=== PATIENT | male | born 1960 ===

== ENCOUNTER 2021-09-18 12:42 | Inpatient (IN) | payer OTHER ==
[~2021-09-18] VITALS: Ht 185.4 cm; Wt 112.0 kg
[2021-09-18] MEDS ORDERED: dexamethasone 4mg tablet PO ONE (13:05)
[2021-09-18 13:11] LABS: BASOPHILS % (AUTO) 0.1 % (0-1); EOSINOPHILS % (AUTO) 0 % (0-6); HEMATOCRIT 46.1 % (42.0-52.0); HEMOGLOBIN 15.6 g/dl (14.0-17.9); LYMPHOCYTES # (AUTO) 0.5 X10'3 (1.1-4.8); LYMPHOCYTES % (AUTO) 5.7 % (21-51); MEAN CORPUSCULAR HEMOGLOBIN 31.5 PG (27.0-31.0); MEAN CORPUSCULAR HGB CONC 33.9 g/dL (33.0-36.5); MEAN PLATELET VOLUME 9.3 FL (7.4-10.4); MONOCYTES # (AUTO) 0.5 X10'3 (0-0.9); NEUTROPHILS # (AUTO) 8.1 X10'3 (1.8-7.7); NEUTROPHILS % (AUTO) 88.2 % (42-75); PLATELET COUNT 213 X10'3 (140-440); RED BLOOD COUNT 4.96 X10'6 (4.70-6.10); RED CELL DISTRIBUTION WIDTH 14.6 % (11.5-14.5); WHITE BLOOD COUNT 9.1 X10'3 (4.5-11.0)
--- NOTE | 2021-09-18 13:13 | NUR ---
ÁLVARO [phone]
[2021-09-18 13:19] LABS: PARTIAL THROMBOPLASTIN TIME 25 SECONDS (22-32)
[2021-09-18 13:28] LABS: ALANINE AMINOTRANSFERASE 69 U/L (12-78); ALBUMIN 2.4 G/DL (3.4-5.0); ALBUMIN/GLOBULIN RATIO 0.5 (1.1-1.5); ALKALINE PHOSPHATASE 39 IU/L (46-116); ANION GAP 7 (8-16); ASPARTATE AMINO TRANSFERASE 46 U/L (10-37); BILIRUBIN,TOTAL 0.7 MG/DL (0.1-1.0); BLOOD UREA NITROGEN 21 MG/DL (7-18); BUN/CREATININE RATIO 16.2 (5.4-32.0); C-REACTIVE PROTEIN 2.44 MG/DL (0.0-0.5); CHLORIDE 102 MMOL/L (99-107); GLUCOSE 187 MG/DL (70-104); LACTATE DEHYDROGENASE 464 U/L (85-227); POTASSIUM 4.1 MMOL/L (3.5-5.1); SODIUM 136 MMOL/L (135-145); TOTAL CARBON DIOXIDE 26.7 MMOL/L (24-32); TOTAL PROTEIN 6.8 G/DL (6.4-8.2); eGFR 56 ML/MIN
[2021-09-18] MEDS ORDERED: iohexol 350MG/ML 100ml bottle IV ONE (13:38)
[2021-09-18] MEDS ORDERED: normal saline 1000ml 1,000 ML IV ONE (13:40)
[2021-09-18 14:01] LABS: D-DIMER 0.64 MG/L FEU (0-0.50)
[2021-09-18] MEDS ORDERED: REMDESIVIR INJ 200 MG in normal saline 100ml IV soln 60 ML IV ONE (15:00)
[2021-09-18] MEDS ORDERED: ASPI-1264 PO (15:23)
[2021-09-18] MEDS ORDERED: CHOL100046 PO (15:23)
[2021-09-18] MEDS ORDERED: QUERCETIN PO (15:23)
[2021-09-18] MEDS ORDERED: PRED5TAB PO (15:23)
[2021-09-18] MEDS ORDERED: DOXY-1 PO (15:23)
[2021-09-18] MEDS ORDERED: ZINC50TA67 PO (15:23)
[2021-09-18] MEDS ORDERED: ASCO-139 PO (15:23)
[2021-09-18] MEDS ORDERED: potassium Cl 20 mEq SR tablet PO PRN ×2 (15:45)
[2021-09-18] MEDS ORDERED: potassium Cl 40MEQ/1/2NS 520ml 520 ML IV PRN ×2 (15:45)
--- NOTE | 2021-09-18 17:11 | NUR ---
Pt placed in hospital bed to increase comfort level
--- NOTE | 2021-09-18 17:52 | NUR ---
Patient in room GOING TO 4021B. I have received report from LUÍS ALBERT FROM ER and had the opportunity to ask questions and assume patient care.
--- NOTE | 2021-09-18 18:17 | NUR ---
Problems reprioritized. Patient report given, questions answered & plan of care reviewed with LUÍS BURNETT.
--- NOTE | 2021-09-18 18:30 | NUR ---
Received report from Shauna STALEY, Patient not on floor yet and still down in ED.
--- NOTE | 2021-09-18 18:45 | NUR ---
Patient brought up to floor via gurney, assisted patient to bed. Bed placed in locked & low position. Call light placed within reach.
[2021-09-18 19:00] VITALS: BP 120/66
--- NOTE | 2021-09-18 19:09 | NUR ---
Dr. Guo patient Daniella Mitul in 4021b arrived from the Er and you have him as a limited code status but it does not specify what the limited code is. Thanks Marielle Martinez [phone]
[2021-09-18] MEDS ORDERED: dexamethasone 4mg/ml inj IM SCH (20:00)
[2021-09-18] MEDS: K and/or MAG REPLACEMENT MC SCH (20:00)
[2021-09-18] MEDS: normal saline 1000ml 1,000 ML IV SCH (20:05)
[2021-09-18] MEDS: enoxaparin 40mg/0.4ml syringe SUBCUT SCH (20:07)
[2021-09-18 21:15] LABS: ABG BASE EXCESS 1.4 mmol/L (-2.0-2.0); ABG HCO3 25.3 mmol/L (22.0-26.0); ABG OXYGEN SATURATION 97.3 % (94-97); ABG PCO2 (T) 37.7 mmHg (35.0-48.0); ABG PO2 (T) 92.7 mmHg (75.0-100.0); ALLEN'S TEST POSITIVE; FCOHb 0.3 % (0.0-3.9); FLOW 15 L/min; FMetHb 0.3 % (0.0-1.5); FO2Hb 96.7 % (94-97); PATIENT TEMPERATURE 36.9; TOTAL HEMOGLOBIN 15.5 G/dl (14.0-18.0)
[2021-09-18 22:00] VITALS: BP 112/71
[2021-09-18] MEDS: dexamethasone inj 8 MG in normal saline 50ml IV soln 50 ML IV SCH (22:04)
[2021-09-19 02:00] VITALS: BP 117/65
[2021-09-19 06:00] VITALS: BP 118/71
--- NOTE | 2021-09-19 06:27 | NUR ---
Problems reprioritized. Patient report given, questions answered & plan of care reviewed with Liilam STALEY.
--- NOTE | 2021-09-19 06:47 | NUR ---
Patient in room ORTHO 4021B. I have received report from LUÍS BURNETT and had the opportunity to ask questions and assume patient care.
[2021-09-19] MEDS: enoxaparin 40mg/0.4ml syringe SUBCUT SCH (07:57)
[2021-09-19] MEDS: dexamethasone inj 8 MG in normal saline 50ml IV soln 50 ML IV SCH ×2 (07:58→19:24)
[2021-09-19] MEDS: K and/or MAG REPLACEMENT MC SCH ×2 (08:00→20:00)
[2021-09-19 09:11] LABS: BASOPHILS % (AUTO) 0.1 % (0-1); D-DIMER 0.58 MG/L FEU (0-0.50); EOSINOPHILS % (AUTO) 0 % (0-6); HEMATOCRIT 44.4 % (42.0-52.0); HEMOGLOBIN 14.9 g/dl (14.0-17.9); LYMPHOCYTES # (AUTO) 0.4 X10'3 (1.1-4.8); LYMPHOCYTES % (AUTO) 5.7 % (21-51); MEAN CORPUSCULAR HEMOGLOBIN 31.1 PG (27.0-31.0); MEAN CORPUSCULAR HGB CONC 33.4 g/dL (33.0-36.5); MEAN CORPUSCULAR VOLUME 93.2 FL (78-98); MONOCYTES # (AUTO) 0.3 X10'3 (0-0.9); NEUTROPHILS # (AUTO) 5.8 X10'3 (1.8-7.7); NEUTROPHILS % (AUTO) 89.2 % (42-75); PLATELET COUNT 214 X10'3 (140-440); RED BLOOD COUNT 4.77 X10'6 (4.70-6.10); RED CELL DISTRIBUTION WIDTH 15.5 % (11.5-14.5); WHITE BLOOD COUNT 6.5 X10'3 (4.5-11.0)
[2021-09-19 09:20] LABS: ALANINE AMINOTRANSFERASE 55 U/L (12-78); ALBUMIN 2.2 G/DL (3.4-5.0); ALBUMIN/GLOBULIN RATIO 0.5 (1.1-1.5); ALKALINE PHOSPHATASE 35 IU/L (46-116); ANION GAP 10 (8-16); ASPARTATE AMINO TRANSFERASE 34 U/L (10-37); BILIRUBIN,TOTAL 0.7 MG/DL (0.1-1.0); BLOOD UREA NITROGEN 18 MG/DL (7-18); BUN/CREATININE RATIO 16.2 (5.4-32.0); CALCIUM 7.6 MG/DL (8.5-10.1); CHLORIDE 104 MMOL/L (99-107); CREATININE 1.11 MG/DL (0.60-1.10); GLUCOSE 266 MG/DL (70-104); POTASSIUM 4.6 MMOL/L (3.5-5.1); SODIUM 140 MMOL/L (135-145); TOTAL CARBON DIOXIDE 26.4 MMOL/L (24-32); TOTAL PROTEIN 6.5 G/DL (6.4-8.2); eGFR 68 ML/MIN
[2021-09-19 10:00] VITALS: BP 119/69
[2021-09-19] MEDS: REMDESIVIR 100 MG in NS 100ml IVPB IV SCH (10:06)
[2021-09-19] MEDS ORDERED: REMDESIVIR INJ 100 MG in normal saline 100ml IV soln 80 ML IV SCH (11:10)
[2021-09-19] MEDS: aspirin 325mg tablet PO SCH (15:24)
--- NOTE | 2021-09-19 15:57 | NUR ---
Page Sent PAGER ID: [phone] MESSAGE: JILLIAN [phone] RE: ELIDIA ALVARES [id number] CAN YOU CLARIFY PT'S CODE STATUS? IT SAYS LIMITED BUT DOES NOT SPECIFY PT'S WISHES. THANK YOU SO MUCH!
--- NOTE | 2021-09-19 17:04 | NUR ---
PER DR. HIDALGO, PT IS LIMITED CODE, DOES NOT WANT INTUBATION. WILL PAGE DR. HIDALGO TO PUT IN ORDER SHE TOLD NURSING TO DO IT, BUT IT IS OUTSIDE SCOPE.
--- NOTE | 2021-09-19 17:06 | NUR ---
Page Sent PAGER ID: [phone] MESSAGE: JILLIAN [phone] RE: ELIDIA ALVARES 2083S PER MY CHARGE NURSE I CANNOT PUT IN CODE STATUS ORDERS. THANKS!
[2021-09-19 18:00] VITALS: BP 126/77
--- NOTE | 2021-09-19 18:33 | NUR ---
Problems reprioritized. Patient report given, questions answered & plan of care reviewed with LUÍS STOUT.
[2021-09-19 22:00] VITALS: BP 121/71
[2021-09-20 02:00] VITALS: BP 132/77
[2021-09-20 06:00] VITALS: BP 142/85
--- NOTE | 2021-09-20 06:27 | NUR ---
Problems reprioritized. Patient report given, questions answered & plan of care reviewed with LUÍS DURANT.
[2021-09-20 07:15] LABS: BASOPHILS % (AUTO) 0.1 % (0-1); EOSINOPHILS % (AUTO) 0 % (0-6); HEMATOCRIT 45.6 % (42.0-52.0); HEMOGLOBIN 15.3 g/dl (14.0-17.9); LYMPHOCYTES # (AUTO) 0.4 X10'3 (1.1-4.8); LYMPHOCYTES % (AUTO) 4.4 % (21-51); MEAN CORPUSCULAR HEMOGLOBIN 31.3 PG (27.0-31.0); MEAN CORPUSCULAR HGB CONC 33.5 g/dL (33.0-36.5); MEAN CORPUSCULAR VOLUME 93.5 FL (78-98); MEAN PLATELET VOLUME 9.2 FL (7.4-10.4); MONOCYTES # (AUTO) 0.6 X10'3 (0-0.9); MONOCYTES % (AUTO) 5.9 % (2-12); NEUTROPHILS # (AUTO) 8.6 X10'3 (1.8-7.7); NEUTROPHILS % (AUTO) 89.6 % (42-75); PLATELET COUNT 250 X10'3 (140-440); RED BLOOD COUNT 4.87 X10'6 (4.70-6.10); WHITE BLOOD COUNT 9.5 X10'3 (4.5-11.0)
[2021-09-20 07:24] LABS: D-DIMER 0.96 MG/L FEU (0-0.50)
[2021-09-20 07:34] LABS: ALANINE AMINOTRANSFERASE 48 U/L (12-78); ALBUMIN 2.2 G/DL (3.4-5.0); ALBUMIN/GLOBULIN RATIO 0.5 (1.1-1.5); ALKALINE PHOSPHATASE 39 IU/L (46-116); ANION GAP 7 (8-16); ASPARTATE AMINO TRANSFERASE 30 U/L (10-37); BILIRUBIN,TOTAL 0.6 MG/DL (0.1-1.0); BLOOD UREA NITROGEN 21 MG/DL (7-18); BUN/CREATININE RATIO 19.8 (5.4-32.0); C-REACTIVE PROTEIN 2.32 MG/DL (0.0-0.5); CALCIUM 8.5 MG/DL (8.5-10.1); CHLORIDE 105 MMOL/L (99-107); CREATININE 1.06 MG/DL (0.60-1.10); GLUCOSE 270 MG/DL (70-104); POTASSIUM 4.8 MMOL/L (3.5-5.1); SODIUM 139 MMOL/L (135-145); TOTAL CARBON DIOXIDE 27.1 MMOL/L (24-32); TOTAL PROTEIN 6.6 G/DL (6.4-8.2); eGFR 71 ML/MIN
[2021-09-20] MEDS: K and/or MAG REPLACEMENT MC SCH ×2 (08:00→20:00)
[2021-09-20] MEDS: aspirin 325mg tablet PO SCH (08:15)
[2021-09-20] MEDS: dexamethasone inj 8 MG in normal saline 50ml IV soln 50 ML IV SCH ×2 (08:15→21:23)
[2021-09-20] MEDS: enoxaparin 40mg/0.4ml syringe SUBCUT SCH (08:15)
[2021-09-20] MEDS: REMDESIVIR 100 MG in NS 100ml IVPB IV SCH (09:46)
[2021-09-20 18:00] VITALS: BP 141/77
--- NOTE | 2021-09-20 18:38 | NUR ---
Report to Yanelis
[2021-09-20] MEDS: normal saline 1000ml 1,000 ML IV SCH (21:24)
[2021-09-20 22:00] VITALS: BP 113/77
[2021-09-21 02:00] VITALS: BP 154/91
[2021-09-21 06:00] VITALS: BP 164/90
[2021-09-21 07:55] LABS: BASOPHILS % (AUTO) 0 % (0-1); EOSINOPHILS % (AUTO) 0 % (0-6); HEMATOCRIT 44.6 % (42.0-52.0); HEMOGLOBIN 14.9 g/dl (14.0-17.9); LYMPHOCYTES # (AUTO) 0.4 X10'3 (1.1-4.8); LYMPHOCYTES % (AUTO) 3.7 % (21-51); MEAN CORPUSCULAR HEMOGLOBIN 31.2 PG (27.0-31.0); MEAN CORPUSCULAR HGB CONC 33.4 g/dL (33.0-36.5); MEAN CORPUSCULAR VOLUME 93.6 FL (78-98); MONOCYTES # (AUTO) 0.7 X10'3 (0-0.9); MONOCYTES % (AUTO) 5.8 % (2-12); NEUTROPHILS # (AUTO) 10.6 X10'3 (1.8-7.7); NEUTROPHILS % (AUTO) 90.5 % (42-75); PLATELET COUNT 273 X10'3 (140-440); RED BLOOD COUNT 4.77 X10'6 (4.70-6.10); RED CELL DISTRIBUTION WIDTH 14.8 % (11.5-14.5); WHITE BLOOD COUNT 11.8 X10'3 (4.5-11.0)
[2021-09-21] MEDS: K and/or MAG REPLACEMENT MC SCH ×2 (08:00→19:34)
[2021-09-21] MEDS: dexamethasone inj 8 MG in normal saline 50ml IV soln 50 ML IV SCH ×2 (08:14→19:34)
[2021-09-21] MEDS: aspirin 325mg tablet PO SCH (08:15)
[2021-09-21] MEDS: enoxaparin 40mg/0.4ml syringe SUBCUT SCH (08:15)
[2021-09-21 08:24] LABS: ALANINE AMINOTRANSFERASE 46 U/L (12-78); ALBUMIN 2.1 G/DL (3.4-5.0); ALBUMIN/GLOBULIN RATIO 0.5 (1.1-1.5); ALKALINE PHOSPHATASE 45 IU/L (46-116); ANION GAP 8 (8-16); ASPARTATE AMINO TRANSFERASE 28 U/L (10-37); BILIRUBIN,TOTAL 0.6 MG/DL (0.1-1.0); BLOOD UREA NITROGEN 21 MG/DL (7-18); BUN/CREATININE RATIO 19.6 (5.4-32.0); C-REACTIVE PROTEIN 1.23 MG/DL (0.0-0.5); CALCIUM 8.2 MG/DL (8.5-10.1); CHLORIDE 107 MMOL/L (99-107); CREATININE 1.07 MG/DL (0.60-1.10); GLUCOSE 263 MG/DL (70-104); SODIUM 142 MMOL/L (135-145); TOTAL CARBON DIOXIDE 27.2 MMOL/L (24-32); TOTAL PROTEIN 6.2 G/DL (6.4-8.2); eGFR 70 ML/MIN
[2021-09-21 08:45] LABS: D-DIMER 3.19 MG/L FEU (0-0.50)
[2021-09-21 10:00] VITALS: BP_SYST 136; BP_SYST 150; BP_DIAS 89; BP_DIAS 90
[2021-09-21] MEDS: REMDESIVIR 100 MG in NS 100ml IVPB IV SCH (11:29)
[2021-09-21 12:58] LABS: HEMOGLOBIN A1C 7.3 % (4.5-6.2)
[2021-09-21 14:00] VITALS: BP 150/90
--- NOTE | 2021-09-21 15:33 | NUR ---
PAGER ID: [phone] MESSAGE: [id number] Fust A1C 7.3, you should talk with him. Has no pmd per
--- NOTE | 2021-09-21 17:38 | NUR ---
PAGER ID: [phone] MESSAGE: [phone] Fust suddenly sob and turned O2 back up. Do you think he should be on weight base lovenox? Sister (RN) asking why hes not on protonix? [phone]
[2021-09-21] MEDS ORDERED: iohexol 350MG/ML 100ml bottle IV ONE (17:56)
[2021-09-21 18:00] VITALS: BP 137/73
[2021-09-21] MEDS: lactose-reduced food (Ensure Enlive) - 237ml bottle PO SCH (18:00)
[2021-09-21 22:00] VITALS: BP 145/86
[2021-09-22 02:00] VITALS: BP 135/86
[2021-09-22 06:00] VITALS: BP 144/87
[2021-09-22] MEDS: enoxaparin 40mg/0.4ml syringe SUBCUT SCH (07:47)
[2021-09-22] MEDS: pantoprazole 40mg Tablet.DR PO SCH (07:47)
[2021-09-22] MEDS: aspirin 325mg tablet PO SCH (07:47)
[2021-09-22] MEDS: dexamethasone inj 8 MG in normal saline 50ml IV soln 50 ML IV SCH ×2 (07:47→21:06)
[2021-09-22] MEDS: K and/or MAG REPLACEMENT MC SCH ×2 (08:00→20:00)
[2021-09-22 08:14] LABS: BASOPHILS % (AUTO) 0.1 % (0-1); EOSINOPHILS % (AUTO) 0 % (0-6); HEMATOCRIT 48.7 % (42.0-52.0); HEMOGLOBIN 16.4 g/dl (14.0-17.9); LYMPHOCYTES # (AUTO) 0.4 X10'3 (1.1-4.8); LYMPHOCYTES % (AUTO) 3.8 % (21-51); MEAN CORPUSCULAR HEMOGLOBIN 31.3 PG (27.0-31.0); MEAN CORPUSCULAR HGB CONC 33.7 g/dL (33.0-36.5); MEAN CORPUSCULAR VOLUME 92.9 FL (78-98); MONOCYTES # (AUTO) 0.5 X10'3 (0-0.9); NEUTROPHILS # (AUTO) 9.9 X10'3 (1.8-7.7); NEUTROPHILS % (AUTO) 91.1 % (42-75); PLATELET COUNT 284 X10'3 (140-440); RED BLOOD COUNT 5.25 X10'6 (4.70-6.10); RED CELL DISTRIBUTION WIDTH 14.8 % (11.5-14.5); WHITE BLOOD COUNT 10.9 X10'3 (4.5-11.0)
[2021-09-22 08:29] LABS: ALANINE AMINOTRANSFERASE 45 U/L (12-78); ALBUMIN 2.3 G/DL (3.4-5.0); ALBUMIN/GLOBULIN RATIO 0.5 (1.1-1.5); ALKALINE PHOSPHATASE 53 IU/L (46-116); ANION GAP 7 (8-16); ASPARTATE AMINO TRANSFERASE 28 U/L (10-37); BILIRUBIN,TOTAL 0.8 MG/DL (0.1-1.0); BLOOD UREA NITROGEN 22 MG/DL (7-18); C-REACTIVE PROTEIN 2.45 MG/DL (0.0-0.5); CALCIUM 8.4 MG/DL (8.5-10.1); CHLORIDE 105 MMOL/L (99-107); CREATININE 1.05 MG/DL (0.60-1.10); GLUCOSE 270 MG/DL (70-104); POTASSIUM 4.8 MMOL/L (3.5-5.1); SODIUM 139 MMOL/L (135-145); TOTAL CARBON DIOXIDE 27.2 MMOL/L (24-32); TOTAL PROTEIN 6.8 G/DL (6.4-8.2); eGFR 72 ML/MIN
[2021-09-22 10:00] VITALS: BP 116/76
[2021-09-22 10:08] LABS: PLATELET ESTIMATE NORMAL; SMUDGE CELLS FEW; TOTAL CELLS COUNTED 100
[2021-09-22] MEDS: lactose-reduced food (Ensure Enlive) - 237ml bottle PO SCH ×3 (10:24→18:00)
[2021-09-22] MEDS: REMDESIVIR 100 MG in NS 100ml IVPB IV SCH (10:25)
[2021-09-22 12:49] LABS: D-DIMER 13.69 MG/L FEU (0-0.50)
--- NOTE | 2021-09-22 13:50 | NUR ---
DM Consult: Pt admit DX COVID-19 PNA and new onset T2DM A1C 7.3% per MD note. Pt PO 50% first 1.5 days carb controlled meals regressed to 25% yesterday w/ refusing dinner last night per EMR. Noted pt on 30L NRB this AM now down to 12L high flow salter per EMR. Ensure Enlive TIDWM added by MD first started WL today pending further PO documentation. Glu 270mg/dl this AM on dexamethasone without Glu coverage this admit; RD [email or web address] regarding glycemic protocol if agreeable. LBM 09/17; would benefit from routine bowel care this admit. Pt would benefit from DM ed once made aware of new DX by MD and more appropriate prior to dishcarge. Will monitor for PO/ONS trends and further nutrition intervention needs. Rec: 1. continue carb controlled diet; encourage PO 2. Ensure Enlive TIDWM per MD; encourage PO. IF PO hx improves consider Ensure High Protein ONS instead 3. routine bowel care; 5 days constipation 4. scaled wt this admit; subsequent weekly wts 5. DM ed once pt made aware of new DM DX by physician and appropriate for ed prior to discharge; A1C 7.3% Addendum: 09/22/21 at [address] Amended: Links added.
[2021-09-22] MEDS: normal saline 1000ml 1,000 ML IV SCH (15:45)
--- NOTE | 2021-09-22 17:22 | NUR ---
PAGER ID: [phone] MESSAGE: [id number] Fust Family (nurses) asking about budesonide? He isn't on any inhalers or RT. [phone] CARLEEN
[2021-09-22] MEDS ORDERED: dextrose ORAL solution 15 GM/59 ML bottle PO PRN ×2 (17:30)
[2021-09-22] MEDS ORDERED: dextrose 50%-water 50ml dispensing syringe IV PRN ×2 (17:30)
[2021-09-22] MEDS ORDERED: MESSAGE TO PHARMACY PO ONE (17:30)
[2021-09-22] MEDS ORDERED: glucagon, human recombinant 1mg kit SUBCUT PRN (17:30)
[2021-09-22 18:00] VITALS: BP 136/93
[2021-09-22] MEDS: enoxaparin 60mg/0.6ml syringe SUBCUT SCH (21:07)
[2021-09-22] MEDS: insulin glargine (Lantus) pen - multi-dose SQ SCH (21:18)
[2021-09-22] MEDS: insulin Lispro (HumaLOG) vial - multi-dose SQ SCH (21:27)
[2021-09-22 22:00] VITALS: BP 140/99
[2021-09-23 02:00] VITALS: BP 142/84
[2021-09-23 06:00] VITALS: BP 130/80
--- NOTE | 2021-09-23 06:28 | NUR ---
Problems reprioritized. Patient report given, questions answered & plan of care reviewed with LUÍS Valle.
[2021-09-23 07:43] LABS: BASOPHILS % (AUTO) 0.3 % (0-1); EOSINOPHILS % (AUTO) 0 % (0-6); HEMATOCRIT 49.2 % (42.0-52.0); HEMOGLOBIN 16.6 g/dl (14.0-17.9); LYMPHOCYTES # (AUTO) 0.3 X10'3 (1.1-4.8); LYMPHOCYTES % (AUTO) 3.1 % (21-51); MEAN CORPUSCULAR HEMOGLOBIN 31.4 PG (27.0-31.0); MEAN CORPUSCULAR HGB CONC 33.7 g/dL (33.0-36.5); MEAN CORPUSCULAR VOLUME 93.1 FL (78-98); MEAN PLATELET VOLUME 9.1 FL (7.4-10.4); MONOCYTES # (AUTO) 0.4 X10'3 (0-0.9); MONOCYTES % (AUTO) 3.5 % (2-12); NEUTROPHILS # (AUTO) 9.9 X10'3 (1.8-7.7); NEUTROPHILS % (AUTO) 93.1 % (42-75); PLATELET COUNT 290 X10'3 (140-440); RED BLOOD COUNT 5.29 X10'6 (4.70-6.10); RED CELL DISTRIBUTION WIDTH 14.6 % (11.5-14.5); WHITE BLOOD COUNT 10.6 X10'3 (4.5-11.0)
[2021-09-23 07:44] LABS: D-DIMER 13.85 MG/L FEU (0-0.50)
[2021-09-23] MEDS: pantoprazole 40mg Tablet.DR PO SCH (07:48)
[2021-09-23] MEDS: enoxaparin 60mg/0.6ml syringe SUBCUT SCH ×2 (07:48→19:25)
[2021-09-23] MEDS: aspirin 325mg tablet PO SCH (07:48)
[2021-09-23] MEDS: dexamethasone inj 8 MG in normal saline 50ml IV soln 50 ML IV SCH (07:48)
[2021-09-23 07:53] LABS: ALANINE AMINOTRANSFERASE 41 U/L (12-78); ALBUMIN 2.2 G/DL (3.4-5.0); ALBUMIN/GLOBULIN RATIO 0.5 (1.1-1.5); ALKALINE PHOSPHATASE 55 IU/L (46-116); ANION GAP 9 (8-16); ASPARTATE AMINO TRANSFERASE 24 U/L (10-37); BILIRUBIN,TOTAL 0.8 MG/DL (0.1-1.0); BLOOD UREA NITROGEN 24 MG/DL (7-18); BUN/CREATININE RATIO 25.3 (5.4-32.0); C-REACTIVE PROTEIN 4.25 MG/DL (0.0-0.5); CALCIUM 8.4 MG/DL (8.5-10.1); CHLORIDE 104 MMOL/L (99-107); CREATININE 0.95 MG/DL (0.60-1.10); GLUCOSE 280 MG/DL (70-104); POTASSIUM 5.1 MMOL/L (3.5-5.1); SODIUM 139 MMOL/L (135-145); TOTAL CARBON DIOXIDE 25.6 MMOL/L (24-32); TOTAL PROTEIN 6.8 G/DL (6.4-8.2); eGFR 81 ML/MIN
[2021-09-23] MEDS: K and/or MAG REPLACEMENT MC SCH ×2 (08:00→18:55)
[2021-09-23] MEDS: lactose-reduced food (Ensure Enlive) - 237ml bottle PO SCH ×3 (08:00→18:54)
--- NOTE | 2021-09-23 09:12 | NUR ---
RT was notified regarding PATIENT NAME LUIS [facility] ROOM 21B, oxygen is desating to low 80s , he is on 15L rebreather and 15L NC . [facility]
[2021-09-23] MEDS ORDERED: enoxaparin 60mg/0.6ml syringe SUBCUT ONE (09:55)
[2021-09-23] MEDS: insulin Lispro (HumaLOG) vial - multi-dose SQ SCH ×3 (10:04→19:29)
[2021-09-23 11:00] VITALS: BP 114/81
[2021-09-23] MEDS: salt irrigation nasal spray 45 ML SPRAY NS PRN ×2 (14:35→16:56)
[2021-09-23 15:00] VITALS: BP 114/81
[2021-09-23] MEDS: methylPREDNISolone sod succ 125mg/2ml vial IV SCH (16:55)
[2021-09-23 18:00] VITALS: BP 116/80
--- NOTE | 2021-09-23 18:00 | NUR ---
15 MICHELLE OLGUIN MASK ALSO Addendum: 09/23/21 at 2122 by Marielle Castellano RN Amended: Links added.
--- NOTE | 2021-09-23 18:19 | NUR ---
Dr. HIDALGO was paged regarding . patient name is neda major in covid unit room 21B want to change his code status to full code . is it possible to change his code please. thank you . BINTA
--- NOTE | 2021-09-23 19:03 | NUR ---
Patient in room ORTHO 4021. I have received report from Tori STALEY and had the opportunity to ask questions and assume patient care.
--- NOTE | 2021-09-23 19:30 | NUR ---
Spoke with pt about his wishes regarding his code status. He stated to me that "if something were to happen I would like everything done to save me." Pt is now a FULL CODE. Addendum: 09/23/21 at 2138 by Kathy Hung RN gang bore operator spoke with DR. HIDALGO to get the order changed to FULL CODE.
--- NOTE | 2021-09-23 19:40 | NUR ---
I talked with Dr. Guo regarding pt's code status. On day shift he expressed the desire to change to full code status from Limited code status no intubation. Talked to Dr. Guo regarding the order and she gave a full code status order to me and nurse, Kathy STALEY per pt's request.
[2021-09-23 22:00] VITALS: BP 132/81
[2021-09-23] MEDS: insulin glargine (Lantus) pen - multi-dose SQ SCH (22:05)
[2021-09-24] MEDS: methylPREDNISolone sod succ 125mg/2ml vial IV SCH ×4 (00:15→23:17)
[2021-09-24 02:00] VITALS: BP 124/85
[2021-09-24 05:00] VITALS: BP 124/85
--- NOTE | 2021-09-24 06:10 | NUR ---
Problems reprioritized. Patient report given, questions answered & plan of care reviewed with Tori STALEY.
[2021-09-24] MEDS: aspirin 325mg tablet PO SCH (07:25)
[2021-09-24] MEDS: pantoprazole 40mg Tablet.DR PO SCH (07:26)
[2021-09-24] MEDS: enoxaparin 60mg/0.6ml syringe SUBCUT SCH ×2 (07:27→19:26)
[2021-09-24] MEDS: K and/or MAG REPLACEMENT MC SCH ×2 (08:00→19:20)
[2021-09-24 08:20] LABS: BASOPHILS % (AUTO) 0.2 % (0-1); EOSINOPHILS % (AUTO) 0 % (0-6); HEMATOCRIT 52.3 % (42.0-52.0); HEMOGLOBIN 17.4 g/dl (14.0-17.9); LYMPHOCYTES # (AUTO) 0.3 X10'3 (1.1-4.8); LYMPHOCYTES % (AUTO) 2.2 % (21-51); MEAN CORPUSCULAR HEMOGLOBIN 31.1 PG (27.0-31.0); MEAN CORPUSCULAR HGB CONC 33.3 g/dL (33.0-36.5); MEAN CORPUSCULAR VOLUME 93.3 FL (78-98); MEAN PLATELET VOLUME 9.2 FL (7.4-10.4); MONOCYTES # (AUTO) 0.5 X10'3 (0-0.9); MONOCYTES % (AUTO) 3.3 % (2-12); NEUTROPHILS # (AUTO) 14.5 X10'3 (1.8-7.7); NEUTROPHILS % (AUTO) 94.3 % (42-75); PLATELET COUNT 331 X10'3 (140-440); RED CELL DISTRIBUTION WIDTH 14.9 % (11.5-14.5); WHITE BLOOD COUNT 15.4 X10'3 (4.5-11.0)
[2021-09-24 08:35] LABS: D-DIMER 3.94 MG/L FEU (0-0.50)
[2021-09-24] MEDS: lactose-reduced food (Ensure Enlive) - 237ml bottle PO SCH ×3 (08:42→18:36)
[2021-09-24] MEDS: insulin Lispro (HumaLOG) vial - multi-dose SQ SCH ×3 (08:54→19:32)
[2021-09-24 09:09] LABS: ALANINE AMINOTRANSFERASE 40 U/L (12-78); ALBUMIN 2.3 G/DL (3.4-5.0); ALBUMIN/GLOBULIN RATIO 0.4 (1.1-1.5); ALKALINE PHOSPHATASE 50 IU/L (46-116); ANION GAP 13 (8-16); ASPARTATE AMINO TRANSFERASE 26 U/L (10-37); BILIRUBIN,TOTAL 0.8 MG/DL (0.1-1.0); BLOOD UREA NITROGEN 31 MG/DL (7-18); BUN/CREATININE RATIO 30.1 (5.4-32.0); C-REACTIVE PROTEIN 3.39 MG/DL (0.0-0.5); CALCIUM 8.5 MG/DL (8.5-10.1); CHLORIDE 103 MMOL/L (99-107); CREATININE 1.03 MG/DL (0.60-1.10); GLUCOSE 247 MG/DL (70-104); POTASSIUM 4.9 MMOL/L (3.5-5.1); SODIUM 140 MMOL/L (135-145); TOTAL CARBON DIOXIDE 24.4 MMOL/L (24-32); TOTAL PROTEIN 7.6 G/DL (6.4-8.2); eGFR 74 ML/MIN
[2021-09-24 10:00] VITALS: BP 111/74
--- NOTE | 2021-09-24 10:48 | NUR ---
Dr. HIDALGO was paged regarding pt name neda mckeonnikita in ortho unit room 21B ,family member is asking if the pt can get a vitamin C IV medicine , and a sleep medicine for the night time . BINTA
[2021-09-24] MEDS ORDERED: ALBUTEROL INHALER 1 PUFF/90 MCG INHALER IH PRN (15:35)
[2021-09-24] MEDS: ascorbic acid 500mg tablet PO SCH (16:33)
[2021-09-24] MEDS: normal saline 1000ml 1,000 ML IV SCH (16:36)
[2021-09-24 17:00] VITALS: BP 106/69
--- NOTE | 2021-09-24 18:45 | NUR ---
Patient in room ORTHO 4021. I have received report from Tori STALEY and had the opportunity to ask questions and assume patient care.
[2021-09-24] MEDS: Melatonin 3mg tablet PO SCH (21:18)
[2021-09-24] MEDS: insulin glargine (Lantus) pen - multi-dose SQ SCH (21:26)
[2021-09-24 22:00] VITALS: BP 114/62
[2021-09-25 02:20] VITALS: BP 124/72
[2021-09-25 05:00] VITALS: BP 128/78
--- NOTE | 2021-09-25 06:36 | NUR ---
Problems reprioritized. Patient report given, questions answered & plan of care reviewed with Sheila STALEY.
[2021-09-25] MEDS: K and/or MAG REPLACEMENT MC SCH ×2 (08:00→20:00)
[2021-09-25 08:25] LABS: BASOPHILS % (AUTO) 0.2 % (0-1); EOSINOPHILS % (AUTO) 0 % (0-6); HEMATOCRIT 51.7 % (42.0-52.0); HEMOGLOBIN 16.9 g/dl (14.0-17.9); LYMPHOCYTES # (AUTO) 0.3 X10'3 (1.1-4.8); LYMPHOCYTES % (AUTO) 2.1 % (21-51); MEAN CORPUSCULAR HEMOGLOBIN 30.9 PG (27.0-31.0); MEAN CORPUSCULAR HGB CONC 32.7 g/dL (33.0-36.5); MEAN CORPUSCULAR VOLUME 94.6 FL (78-98); MEAN PLATELET VOLUME 9.4 FL (7.4-10.4); MONOCYTES # (AUTO) 0.5 X10'3 (0-0.9); MONOCYTES % (AUTO) 3.1 % (2-12); NEUTROPHILS # (AUTO) 14.4 X10'3 (1.8-7.7); NEUTROPHILS % (AUTO) 94.6 % (42-75); PLATELET COUNT 323 X10'3 (140-440); RED BLOOD COUNT 5.47 X10'6 (4.70-6.10); RED CELL DISTRIBUTION WIDTH 15.6 % (11.5-14.5); WHITE BLOOD COUNT 15.2 X10'3 (4.5-11.0)
[2021-09-25] MEDS: insulin Lispro (HumaLOG) vial - multi-dose SQ SCH ×4 (08:33→22:29)
[2021-09-25] MEDS: enoxaparin 60mg/0.6ml syringe SUBCUT SCH ×2 (08:37→21:24)
[2021-09-25] MEDS: methylPREDNISolone sod succ 125mg/2ml vial IV SCH ×3 (08:38→23:55)
[2021-09-25 08:39] LABS: ALANINE AMINOTRANSFERASE 37 U/L (12-78); ALBUMIN 2.1 G/DL (3.4-5.0); ALBUMIN/GLOBULIN RATIO 0.4 (1.1-1.5); ALKALINE PHOSPHATASE 53 IU/L (46-116); ANION GAP 7 (8-16); ASPARTATE AMINO TRANSFERASE 26 U/L (10-37); BILIRUBIN,TOTAL 0.8 MG/DL (0.1-1.0); BLOOD UREA NITROGEN 36 MG/DL (7-18); BUN/CREATININE RATIO 28.8 (5.4-32.0); C-REACTIVE PROTEIN 2.25 MG/DL (0.0-0.5); CALCIUM 8.6 MG/DL (8.5-10.1); CHLORIDE 107 MMOL/L (99-107); CREATININE 1.25 MG/DL (0.60-1.10); GLUCOSE 241 MG/DL (70-104); POTASSIUM 5.1 MMOL/L (3.5-5.1); SODIUM 142 MMOL/L (135-145); TOTAL CARBON DIOXIDE 28.4 MMOL/L (24-32); TOTAL PROTEIN 6.9 G/DL (6.4-8.2); eGFR 59 ML/MIN
[2021-09-25] MEDS: ascorbic acid 500mg tablet PO SCH ×2 (08:40→16:07)
[2021-09-25] MEDS: lactose-reduced food (Ensure Enlive) - 237ml bottle PO SCH ×3 (08:40→18:10)
[2021-09-25] MEDS: cholecalciferol (vitamin D3) 1,000 unit (25mcg) tablet PO SCH (08:40)
[2021-09-25] MEDS: pantoprazole 40mg Tablet.DR PO SCH (08:40)
[2021-09-25] MEDS: aspirin 325mg tablet PO SCH (08:40)
[2021-09-25 10:00] VITALS: BP 102/65
[2021-09-25 14:00] VITALS: BP 107/63
--- NOTE | 2021-09-25 14:05 | NUR ---
Reassessment: Per MD note pt has been informed about his new dx of DM. Per physical assessment pt continues to be SOB at rest and per MD note continues to require high flow oxygen at 100%. Will attempt verbal DM education once pt more stable. Pt continues on CHO controlled diet however PO intake of meals appears to be declining with mostly 0-25% PO intake of meals with occasional 50-75% PO intake. Pt continues receiving Ensure Enlive TID and documented with mostly 100% PO intake of ONS which meets 46% estimated energy needs and 50% estimated protein needs using IBW + 10% to calculated estimated energy needs as current documented wt isn't scaled. LBM 09/23 per I&O. Will continue to follow closely and make recommendations as appropriate. Recommendations: 1. Continue carb controlled diet; encourage PO intake 2. Ensure Enlive TIDWM; IF PO intake improves consider Ensure High Protein ONS instead 3. Routine bowel care 4. Scaled wt this admit; subsequent weekly wts 5. DM ed once pt more stable; new onset DM with A1C 7.3%, pt informed of dx per note Addendum: 09/25/21 at [address] Amended: Links added.
[2021-09-25 18:00] VITALS: BP 110/65
--- NOTE | 2021-09-25 18:00 | NUR ---
wearing 50 liters oxygen and 15 liters nrb mask Addendum: 09/25/21 at 2124 by Marielle Castellano RN Amended: Links added.
--- NOTE | 2021-09-25 18:10 | NUR ---
Report given to Sivan STALEY. All questions answered. Pt in bed eating dinner. No current distress or changes.
--- NOTE | 2021-09-25 19:18 | NUR ---
Report given to chrissie STALEY all questions answered. Pt doing well in bed. No current distress.
[2021-09-25] MEDS: Melatonin 3mg tablet PO SCH (21:23)
[2021-09-25 22:00] VITALS: BP 111/69
--- NOTE | 2021-09-25 22:00 | NUR ---
wearing 60liters high flow oxygen and 15liters nrb mask Addendum: 09/25/21 at 2328 by Marielle Castellano RN Amended: Links added.
[2021-09-25] MEDS: insulin glargine (Lantus) pen - multi-dose SQ SCH (22:28)
[2021-09-26 02:00] VITALS: BP 115/68
--- NOTE | 2021-09-26 02:00 | NUR ---
wearing 15liters nrb mask too Addendum: 09/26/21 at 0336 by Marielle Castellano RN Amended: Links added.
[2021-09-26 06:00] VITALS: BP 113/70
--- NOTE | 2021-09-26 06:00 | NUR ---
wearing 15liters nrb along with hf oxygen Addendum: 09/26/21 at 0652 by Marielle Castellano RN Amended: Links added.
--- NOTE | 2021-09-26 06:15 | NUR ---
received report from janette man
[2021-09-26] MEDS: lactose-reduced food (Ensure Enlive) - 237ml bottle PO SCH ×3 (07:31→18:25)
[2021-09-26] MEDS: K and/or MAG REPLACEMENT MC SCH ×2 (07:31→20:00)
[2021-09-26] MEDS: enoxaparin 60mg/0.6ml syringe SUBCUT SCH ×2 (07:36→18:58)
[2021-09-26] MEDS: pantoprazole 40mg Tablet.DR PO SCH (07:36)
[2021-09-26] MEDS: ascorbic acid 500mg tablet PO SCH ×2 (07:36→15:55)
[2021-09-26] MEDS: aspirin 325mg tablet PO SCH (07:36)
[2021-09-26] MEDS: cholecalciferol (vitamin D3) 1,000 unit (25mcg) tablet PO SCH (07:36)
[2021-09-26] MEDS: methylPREDNISolone sod succ 125mg/2ml vial IV SCH ×2 (07:37→15:55)
[2021-09-26] MEDS: insulin Lispro (HumaLOG) vial - multi-dose SQ SCH ×3 (08:47→18:53)
[2021-09-26 10:00] VITALS: BP 114/70
[2021-09-26] MEDS: normal saline 1000ml 1,000 ML IV SCH (15:45)
[2021-09-26 18:00] VITALS: BP 130/73
--- NOTE | 2021-09-26 18:25 | NUR ---
gave report to janette charles
[2021-09-26] MEDS: Melatonin 3mg tablet PO SCH (21:33)
[2021-09-26] MEDS: insulin glargine (Lantus) pen - multi-dose SQ SCH (21:33)
[2021-09-26 22:00] VITALS: BP 110/53
[2021-09-27] VITALS (7 sets, daily range): BP systolic 96–123; BP diastolic 61–78
[2021-09-27] MEDS: methylPREDNISolone sod succ 125mg/2ml vial IV SCH ×4 (03:11→23:41)
--- NOTE | 2021-09-27 06:28 | NUR ---
Patient in room ORTHO 4021. I have received report from Sivan STALEY and had the opportunity to ask questions and assume patient care.
[2021-09-27 06:57] LABS: BASOPHILS % (AUTO) 0.2 % (0-1); EOSINOPHILS % (AUTO) 0 % (0-6); HEMATOCRIT 52.9 % (42.0-52.0); HEMOGLOBIN 17.3 g/dl (14.0-17.9); LYMPHOCYTES # (AUTO) 0.2 X10'3 (1.1-4.8); LYMPHOCYTES % (AUTO) 1.2 % (21-51); MEAN CORPUSCULAR HEMOGLOBIN 30.9 PG (27.0-31.0); MEAN CORPUSCULAR HGB CONC 32.7 g/dL (33.0-36.5); MEAN CORPUSCULAR VOLUME 94.5 FL (78-98); MEAN PLATELET VOLUME 9.7 FL (7.4-10.4); MONOCYTES # (AUTO) 0.9 X10'3 (0-0.9); MONOCYTES % (AUTO) 4.2 % (2-12); NEUTROPHILS # (AUTO) 19.8 X10'3 (1.8-7.7); NEUTROPHILS % (AUTO) 94.4 % (42-75); PLATELET COUNT 268 X10'3 (140-440); RED BLOOD COUNT 5.59 X10'6 (4.70-6.10); RED CELL DISTRIBUTION WIDTH 15.2 % (11.5-14.5)
--- NOTE | 2021-09-27 07:02 | NUR ---
PAGER ID: [phone] MESSAGE: [phone], Fust patient is having a hard time with cough this morning. Can I get something for him please? yulissa [phone]
[2021-09-27] MEDS ORDERED: guaiFENesin/DM 10ml UD oral syrup PO PRN (07:05)
[2021-09-27] MEDS: pantoprazole 40mg Tablet.DR PO SCH (07:11)
[2021-09-27] MEDS: aspirin 325mg tablet PO SCH (07:11)
[2021-09-27] MEDS: ascorbic acid 500mg tablet PO SCH ×2 (07:11→17:59)
[2021-09-27] MEDS: cholecalciferol (vitamin D3) 1,000 unit (25mcg) tablet PO SCH (07:11)
[2021-09-27] MEDS: enoxaparin 60mg/0.6ml syringe SUBCUT SCH ×2 (07:11→21:04)
[2021-09-27 07:48] LABS: ALBUMIN 1.7 G/DL (3.4-5.0); ANION GAP 12 (8-16); BLOOD UREA NITROGEN 34 MG/DL (7-18); BUN/CREATININE RATIO 38.6 (5.4-32.0); CALCIUM 8.4 MG/DL (8.5-10.1); CHLORIDE 107 MMOL/L (99-107); CREATININE 0.88 MG/DL (0.60-1.10); GLUCOSE 135 MG/DL (70-104); POTASSIUM 5.5 MMOL/L (3.5-5.1); SODIUM 136 MMOL/L (135-145); TOTAL CARBON DIOXIDE 17.3 MMOL/L (24-32); eGFR 88 ML/MIN
[2021-09-27] MEDS: K and/or MAG REPLACEMENT MC SCH ×2 (08:00→18:56)
[2021-09-27] MEDS: lactose-reduced food (Ensure Enlive) - 237ml bottle PO SCH ×3 (08:46→18:00)
[2021-09-27] MEDS: insulin Lispro (HumaLOG) vial - multi-dose SQ SCH ×3 (08:55→18:46)
--- NOTE | 2021-09-27 11:05 | NUR ---
Attempted to prone patient this morning, quickly became restless and unable to tolerate position. Patient is alert and oriented yet has moments of confusion at times. has called me three times.
--- NOTE | 2021-09-27 14:59 | NUR ---
Patient is pleasant and alert and oriented however is forgetful, patient has asked multiple times about oxygen requirements and requires frequent re-education regarding 02 saturations.
--- NOTE | 2021-09-27 18:21 | NUR ---
Problems reprioritized. Patient report given, questions answered & plan of care reviewed with Celena STALEY.
[2021-09-27] MEDS: Melatonin 3mg tablet PO SCH (21:04)
[2021-09-27] MEDS: insulin glargine (Lantus) pen - multi-dose SQ SCH (21:09)
[2021-09-28 02:00] VITALS: BP 126/79
[2021-09-28 06:00] VITALS: BP 109/73
--- NOTE | 2021-09-28 06:49 | NUR ---
Patient in room ORTHO 4021B. I have received report from LUÍS GONZALEZ and had the opportunity to ask questions and assume patient care.
[2021-09-28 06:57] LABS: D-DIMER 1.26 MG/L FEU (0-0.50)
[2021-09-28] MEDS: pantoprazole 40mg Tablet.DR PO SCH (07:25)
[2021-09-28] MEDS: ascorbic acid 500mg tablet PO SCH ×2 (07:25→16:44)
[2021-09-28] MEDS: aspirin 325mg tablet PO SCH (07:25)
[2021-09-28] MEDS: cholecalciferol (vitamin D3) 1,000 unit (25mcg) tablet PO SCH (07:25)
[2021-09-28] MEDS: methylPREDNISolone sod succ 125mg/2ml vial IV SCH (07:36)
[2021-09-28] MEDS: enoxaparin 60mg/0.6ml syringe SUBCUT SCH ×2 (07:46→21:02)
[2021-09-28] MEDS: K and/or MAG REPLACEMENT MC SCH ×2 (08:00→20:00)
[2021-09-28] MEDS: lactose-reduced food (Ensure Enlive) - 237ml bottle PO SCH ×3 (08:41→18:45)
[2021-09-28 10:00] VITALS: BP 109/73
[2021-09-28] MEDS: insulin Lispro (HumaLOG) vial - multi-dose SQ SCH ×3 (10:05→18:49)
--- NOTE | 2021-09-28 11:40 | NUR ---
F/u 09/28: Pt PO remains poor 0-25% avg 5 days w/ further decline past 1.5 days no longer drinking Ensure ONS. Noted currently on 50L HFNC and NRB w/ LBM 09/23; constipation and respiratory status likely impacting PO trends. Given 5 days inadequate intake w/ declining PO trends and increased respiratory requirement would likely benefit from nutrition support to meet needs. RD d/w RN regarding nutrition support needs and routine bowel care this admit if MD agreeable. RN reports pt does not like food though poor PO intake in general but will discuss w/ patient possibility of nutrition support needs if poor PO persists. IF to remain PO would benefit from regular diet if MD agreeable. TF recs below in case to start. Will continue to monitor for additional nutrition intervention needs. Recommendations: 1. liberalize to regular diet given poor PO hx; encourage PO intake 2. Ensure Enlive TIDWM; encourage PO intake 3. Consider post-pyloric NG nutrition to optimize nutrition status w/ prolonged inadequate intake; IF TF Vital AF at 80ml/hr goal. 4. Routine bowel care; none this admit w/ 5 days constipation 5. Scaled wt this admit; subsequent weekly wts 6. DM ed once pt more stable; new onset DM with A1C 7.3%, pt informed of dx per note Addendum: 09/28/21 at [address] Amended: Links added.
--- NOTE | 2021-09-28 13:39 | NUR ---
Page Sent PAGER ID: [phone] MESSAGE: ANDREY 6960-RE: ELIDIA ALVARES 4021B...PT HAVING INCREASED CONFUSION, INCREASED SOB, SA02 85% ON 50L HF TOWER WITH 15L NON REBREATHER...PAGED RT, CAN I GET AN ORDER FOR ABG? MAYBE CXR OR CTA?
[2021-09-28 14:00] VITALS: BP 103/62
[2021-09-28 15:55] LABS: ABG BASE EXCESS 2.1 mmol/L (-2.0-2.0); ABG HCO3 26.4 mmol/L (22.0-26.0); ABG PCO2 (T) 41.3 mmHg (35.0-48.0); ABG PO2 (T) 66.7 mmHg (75.0-100.0); ALLEN'S TEST POSITIVE; FCOHb 0.3 % (0.0-3.9); FLOW 50 L/min; FMetHb 0.5 % (0.0-1.5); FO2Hb 92.3 % (94-97); PATIENT TEMPERATURE 37.8; TOTAL HEMOGLOBIN 18.6 G/dl (14.0-18.0)
--- NOTE | 2021-09-28 16:04 | NUR ---
Page Sent PAGER ID: [phone] MESSAGE: ANDREY [id number]-RE: ELIDIA ALVARES 4021B...ABG AND CXR RESULTS ARE BACK
[2021-09-28] MEDS: methylPREDNISolone sod succ/PF 40mg inj. IV SCH ×2 (16:44→23:21)
[2021-09-28] MEDS: normal saline 1000ml 1,000 ML IV SCH (16:55)
[2021-09-28 18:00] VITALS: BP 96/62
--- NOTE | 2021-09-28 18:11 | NUR ---
Problems reprioritized. Patient report given, questions answered & plan of care reviewed with LUÍS GONZALEZ.
--- NOTE | 2021-09-28 21:00 | NUR ---
Spoke with pts and updated her on Mitul's status. Discussed her concerns. She is hoping he can transfer to another unit since he will be off [facility] at 0000 and then she can come visit him. This would be very beneficial for him as he is lonely and seems to be getting confused/anxious and "losing touch with reality."
[2021-09-28] MEDS: Melatonin 3mg tablet PO SCH (21:01)
[2021-09-28] MEDS: insulin glargine (Lantus) pen - multi-dose SQ SCH (21:15)
[2021-09-28 22:00] VITALS: BP 113/76
[2021-09-28] MEDS ORDERED: acetaminophen 325mg tablet PO PRN (22:20)
[2021-09-28] MEDS: acetaminophen 325mg tablet PO PRN (22:33)
--- NOTE | 2021-09-28 23:20 | NUR ---
I accidently punctured the solu-medrol before dilluting the med so I had to toss it and get another vial out.
[2021-09-29 02:00] VITALS: BP 119/85
[2021-09-29 06:00] VITALS: BP 108/76
--- NOTE | 2021-09-29 06:22 | NUR ---
Patient in room ORTHO 4021B. I have received report from LUÍS GONZALEZ and had the opportunity to ask questions and assume patient care.
[2021-09-29 07:16] LABS: D-DIMER 0.92 MG/L FEU (0-0.50)
[2021-09-29] MEDS: lactose-reduced food (Ensure Enlive) - 237ml bottle PO SCH ×3 (08:00→18:00)
[2021-09-29] MEDS: K and/or MAG REPLACEMENT MC SCH ×2 (08:00→20:00)
[2021-09-29] MEDS: insulin Lispro (HumaLOG) vial - multi-dose SQ SCH ×2 (09:37→19:19)
[2021-09-29] MEDS: pantoprazole 40mg Tablet.DR PO SCH (09:40)
[2021-09-29] MEDS: aspirin 325mg tablet PO SCH (09:41)
[2021-09-29] MEDS: ascorbic acid 500mg tablet PO SCH ×2 (09:41→17:12)
[2021-09-29] MEDS: cholecalciferol (vitamin D3) 1,000 unit (25mcg) tablet PO SCH (09:41)
[2021-09-29] MEDS: methylPREDNISolone sod succ/PF 40mg inj. IV SCH ×2 (09:42→17:11)
[2021-09-29] MEDS: enoxaparin 60mg/0.6ml syringe SUBCUT SCH ×2 (09:43→19:12)
[2021-09-29 09:45] LABS: BASOPHILS # (AUTO) 0.1 X10'3 (0-0.2); BASOPHILS % (AUTO) 0.3 % (0-1); EOSINOPHILS % (AUTO) 0 % (0-6); HEMATOCRIT 51.3 % (42.0-52.0); HEMOGLOBIN 17.1 g/dl (14.0-17.9); LYMPHOCYTES # (AUTO) 0.2 X10'3 (1.1-4.8); LYMPHOCYTES % (AUTO) 1.2 % (21-51); MEAN CORPUSCULAR HEMOGLOBIN 31.3 PG (27.0-31.0); MEAN CORPUSCULAR HGB CONC 33.4 g/dL (33.0-36.5); MEAN CORPUSCULAR VOLUME 93.8 FL (78-98); MONOCYTES # (AUTO) 0.6 X10'3 (0-0.9); MONOCYTES % (AUTO) 3.3 % (2-12); NEUTROPHILS # (AUTO) 18.8 X10'3 (1.8-7.7); NEUTROPHILS % (AUTO) 95.2 % (42-75); PLATELET COUNT 199 X10'3 (140-440); RED BLOOD COUNT 5.47 X10'6 (4.70-6.10); WHITE BLOOD COUNT 19.8 X10'3 (4.5-11.0)
[2021-09-29 10:00] VITALS: BP 109/80
[2021-09-29 10:13] LABS: ALANINE AMINOTRANSFERASE 80 U/L (12-78); ALBUMIN 1.9 G/DL (3.4-5.0); ALBUMIN/GLOBULIN RATIO 0.4 (1.1-1.5); ALKALINE PHOSPHATASE 58 IU/L (46-116); ASPARTATE AMINO TRANSFERASE 45 U/L (10-37); BLOOD UREA NITROGEN 35 MG/DL (7-18); BUN/CREATININE RATIO 36.1 (5.4-32.0); CALCIUM 8.3 MG/DL (8.5-10.1); CHLORIDE 106 MMOL/L (99-107); CREATININE 0.97 MG/DL (0.60-1.10); GLUCOSE 221 MG/DL (70-104); POTASSIUM 5.1 MMOL/L (3.5-5.1); TOTAL CARBON DIOXIDE 24.5 MMOL/L (24-32); TOTAL PROTEIN 6.5 G/DL (6.4-8.2); eGFR 79 ML/MIN
[2021-09-29 10:17] LABS: ANION GAP 10 (8-16); SODIUM 140 MMOL/L (135-145)
[2021-09-29] MEDS ORDERED: magnesium hydroxide 30ml (MOM) UD suspension PO PRN (14:00)
--- NOTE | 2021-09-29 14:21 | NUR ---
F/u 09/29: RD d/w RN regarding poor meals intake past 7 days. RN reports has discussed w/ pt nutrition support options and pt declines NG at this time. RN reports pt likely not stable for NG anyway since dropped to 70% saturations when trying to eat this AM. RN reports pt to bring in protein drinks and food from home in hopes of increased PO. Pt PO mostly 100% Ensure Enlives though national shortages requiring replacement w/ Glucerna TID at times meeting 29-46% kcals and 25-29% protein needs this LOS. IF PO intake remains poor may require PN to optimize nutrition intake this admit given respiratory status. Will continue to monitor. Recommendations: 1. liberalize to regular diet given poor PO hx; encourage PO intake 2. Ensure Enlive TIDWM; Glucerna ONS substitute if out of Enures; encourage PO intake 3. Given poor PO tolerance and declines NG; Consider TPN to optimize nutrition intake. IF TPN; Clinimix E 5/20 at 100ml/hr goal w/ separate 100ml 20% intralipids to run for 12 hours daily at 8.33ml/hr. Would provide 2400ml volume/day, 120g protein, 480g DEX (2.67mg/kg/min), and 2312 kcals. 4. Routine bowel care; none this admit w/ 5 days constipation 5. Scaled wt this admit; subsequent weekly wts 6. DM ed once pt more stable; new onset DM with A1C 7.3%, pt informed of dx per note Addendum: 09/29/21 at [address] Amended: Links added.
[2021-09-29 18:30] VITALS: BP 129/90
--- NOTE | 2021-09-29 18:40 | NUR ---
Patient in room ORTHO 4021. I have received report from LUÍS Solis and had the opportunity to ask questions and assume patient care. Pt c/o some sob "uncomfortable" enc salbador, sat 88 to 90%. Addendum: 09/29/21 at 1847 by Tomeka Collins RN Amended: Links added.
--- NOTE | 2021-09-29 18:58 | NUR ---
Pt gets very anxious, stats "cannot get comfortable" enc proning pt refuses states he cannot do that at night. pt turned on side poc with pillows. enc slow deep breaths goes down in 70's when anxious then up to 90 90% at rest when on side. Addendum: 09/29/21 at 1859 by Tomeka Collins RN Amended: Links added.
--- NOTE | 2021-09-29 19:07 | NUR ---
resp paged, pt very anxious sat 85% enc slow breathing. pt refuses to prone and refuses any ativan or soemthing to help him relax. when pt calm sat up to 90% - 92% on non rebreather. Addendum: 09/29/21 at 1909 by Tomeka Collins RN Amended: Links added.
--- NOTE | 2021-09-29 19:30 | NUR ---
lless distress o2 91% 60% Addendum: 09/29/21 at 1932 by Tomeka Collins RN Amended: Links added.
[2021-09-29] MEDS: docusate sod 100mg capsule PO SCH (20:00)
--- NOTE | 2021-09-29 21:39 | NUR ---
Pt spouse Joellen called to check on pt. Pt states okay to give her any information she wants. Spouse asking about oxygen level anxiety request something for anxiety. Pt has declined, but will ask again. Spouse concerned that no Doctor has called her and she has requested several times. She request that Dr Quiroga please call her and Pt Doctor. Spouse asking about mononuclear antibody infusion, and Ivermectin. Explained to these are not being used her, but will have hospitalist notified in am that she is requesting them. She states to please make a note in chart that she requested. Spouse also concerned about activity and informed pt is ordered, they will work with him based on his oxygen levels, and we do not want to push activity when his oxygen sats are low, but will continue to work with him. She verbalized understanding. reported this to primer charger and will report to next shift for follow up. Addendum: 09/29/21 at 2145 by Tomeka Collins RN Amended: Links added.
[2021-09-29] MEDS: Melatonin 3mg tablet PO SCH (21:54)
[2021-09-29 22:00] VITALS: BP 100/67
[2021-09-29] MEDS: insulin glargine (Lantus) pen - multi-dose SQ SCH (22:03)
--- NOTE | 2021-09-29 22:22 | NUR ---
Pt refuses colace or stool softener, states he "is fine" "I know my body" states will have a bm in am. refuses any bath or hs care, offered linen change refuses. gerri care and abd wiped with warm bath wipes after assisting with urinal. Pt refuses to have sacrum completely assessed. changed pillow cases, offered ice or cool compress pt states "hot" declines. c/o mild h/a refuses any pain medication or tylenol. Pt still refuses ativan or anything else to help him sleep. explained to pt spouse also suggested, but he still declines. sat 91% Addendum: 09/29/21 at 2225 by Tomeka Collins RN Amended: Links added.
[2021-09-30] MEDS: normal saline 1000ml 1,000 ML IV SCH (00:04)
[2021-09-30] MEDS: methylPREDNISolone sod succ/PF 40mg inj. IV SCH ×3 (00:04→16:02)
--- NOTE | 2021-09-30 01:50 | NUR ---
Yarelis jaime sat went down to 85%, now back up to 89 to 91% Addendum: 09/30/21 at 0151 by Tomeka Collins RN Amended: Links added.
[2021-09-30 02:00] VITALS: BP 105/68
[2021-09-30] MEDS ORDERED: HYDROcodone/acetaminophen 10/325mg tab PO PRN (02:45)
--- NOTE | 2021-09-30 02:51 | NUR ---
awake watching movie on phone. pt offered ativan and also norco if needed. pt declined. states he doesnt want anything tonight. states maybe later. pt is more calm, sat is around 89 to 90% on 60l hiflo. Addendum: 09/30/21 at 0252 by Tomeka Collins RN Amended: Links added.
[2021-09-30] MEDS: LORazepam 1 MG tablet PO PRN (03:32)
--- NOTE | 2021-09-30 03:42 | NUR ---
pt up to [facility] with x2 sba, very sob with activity had large formed brown stool. gerri care done. while standing, linen changed. pt back to bed poc with assist x2, sats in the 80's briefly down to 69 while up. pt very anxious, ativan given,cool compress to forehead. Enc proning and educated on reasons why, pt refuses. turned on left side poc with pillows. sats coming up to 86% enc slow deep breaths. Addendum: 09/30/21 at 0345 by Tomeka Collins RN Amended: Links added.
--- NOTE | 2021-09-30 04:59 | NUR ---
Pt is resting with eyes closed appears more comfortabel sat now staying at 91% Addendum: 09/30/21 at 0459 by Tomeka Collins RN Amended: Links added.
[2021-09-30 06:00] VITALS: BP 103/62
--- NOTE | 2021-09-30 06:02 | NUR ---
Pt pulled max off and sat went down to 70's per tele, mask back on enc slow deep breaths sat now 83 to 88%. Addendum: 09/30/21 at 0602 by Tomeka Collins RN Amended: Links added.
--- NOTE | 2021-09-30 06:10 | NUR ---
received report from janette espinal
--- NOTE | 2021-09-30 06:15 | NUR ---
Problems reprioritized. Patient report given, questions answered & plan of care reviewed with LUÍS Dominguez. Addendum: 09/30/21 at 0615 by Tomeka Collins RN Amended: Links added.
[2021-09-30 07:05] LABS: BASOPHILS % (AUTO) 0.1 % (0-1); EOSINOPHILS % (AUTO) 0 % (0-6); HEMATOCRIT 49.7 % (42.0-52.0); HEMOGLOBIN 16.5 g/dl (14.0-17.9); LYMPHOCYTES # (AUTO) 0.2 X10'3 (1.1-4.8); LYMPHOCYTES % (AUTO) 0.9 % (21-51); MEAN CORPUSCULAR HGB CONC 33.2 g/dL (33.0-36.5); MEAN CORPUSCULAR VOLUME 93.2 FL (78-98); MEAN PLATELET VOLUME 10.4 FL (7.4-10.4); MONOCYTES # (AUTO) 0.6 X10'3 (0-0.9); MONOCYTES % (AUTO) 2.4 % (2-12); NEUTROPHILS # (AUTO) 22.1 X10'3 (1.8-7.7); NEUTROPHILS % (AUTO) 96.6 % (42-75); PLATELET COUNT 178 X10'3 (140-440); RED BLOOD COUNT 5.34 X10'6 (4.70-6.10); RED CELL DISTRIBUTION WIDTH 14.9 % (11.5-14.5); WHITE BLOOD COUNT 22.9 X10'3 (4.5-11.0)
[2021-09-30 07:06] LABS: D-DIMER 1.54 MG/L FEU (0-0.50)
[2021-09-30 07:11] LABS: ALANINE AMINOTRANSFERASE 76 U/L (12-78); ALBUMIN 1.8 G/DL (3.4-5.0); ALBUMIN/GLOBULIN RATIO 0.4 (1.1-1.5); ALKALINE PHOSPHATASE 70 IU/L (46-116); ANION GAP 7 (8-16); ASPARTATE AMINO TRANSFERASE 50 U/L (10-37); BILIRUBIN,TOTAL 1.1 MG/DL (0.1-1.0); BLOOD UREA NITROGEN 32 MG/DL (7-18); C-REACTIVE PROTEIN 7.36 MG/DL (0.0-0.5); CALCIUM 8.4 MG/DL (8.5-10.1); CHLORIDE 107 MMOL/L (99-107); CREATININE 0.97 MG/DL (0.60-1.10); GLUCOSE 170 MG/DL (70-104); POTASSIUM 5.1 MMOL/L (3.5-5.1); SODIUM 141 MMOL/L (135-145); TOTAL CARBON DIOXIDE 27.5 MMOL/L (24-32); TOTAL PROTEIN 6.4 G/DL (6.4-8.2); eGFR 79 ML/MIN
[2021-09-30] MEDS: lactose-reduced food (Ensure Enlive) - 237ml bottle PO SCH ×3 (07:34→17:51)
[2021-09-30] MEDS: aspirin 325mg tablet PO SCH (07:40)
[2021-09-30] MEDS: cholecalciferol (vitamin D3) 1,000 unit (25mcg) tablet PO SCH (07:40)
[2021-09-30] MEDS: pantoprazole 40mg Tablet.DR PO SCH (07:40)
[2021-09-30] MEDS: ascorbic acid 500mg tablet PO SCH ×2 (07:40→16:02)
[2021-09-30] MEDS: enoxaparin 60mg/0.6ml syringe SUBCUT SCH ×2 (07:42→20:36)
[2021-09-30] MEDS: docusate sod 100mg capsule PO SCH ×2 (07:51→20:00)
[2021-09-30] MEDS: K and/or MAG REPLACEMENT MC SCH ×2 (07:52→20:00)
[2021-09-30] MEDS: insulin Lispro (HumaLOG) vial - multi-dose SQ SCH ×2 (08:48→18:50)
[2021-09-30 10:00] VITALS: BP 81/43
--- NOTE | 2021-09-30 13:08 | NUR ---
pt bg is 89 and he is not eating, therefore, pt is not a candidate for insulin at this time, continue to monitor
[2021-09-30 14:00] VITALS: BP 139/82
--- NOTE | 2021-09-30 16:01 | NUR ---
Reassessment: Pt continues to eat poorly on CHO controlled diet with mostly 0% PO intake though with 75-100% PO intake of ONS TID however overall not meeting estimated nutrient needs. TC to RN who reports patient's SO has been encouraged to bring food in that pt might like as pt states he does not like the hospital food and does not have any food preferences. D/w RN recommendation for diet advancement to regular to optimize PO intake. RN d/w who agrees, pt now on regular diet. D/w dietary to send Ensure pudding WB, smoothie WB, and a shake BIDLD to optimize PO intake per d/w RN. RD d/w RN recommendation for TPN to assist with meeting estimated nutrient needs given pt with poor PO intake and previously stated he would not want and NG tube for EN, per RN pt likely to refuse TPN as well. Noted pt documented to be resistive to care per EMR. LBM 09/30, documented as large per EMR, first BM since admit. Will continue to follow closely and make recommendations as appropriate. Recommendations: 1. Continue regular diet given poor PO intake throughout LOS; change to CHO controlled diet if average PO intake consistently greater than 65% of meals 2. Ensure Enlive TIDWM; Glucerna ONS substitute if out of Ensure 3. Ensure pudding and smoothie WB, shake BIDLD 4. Encourage PO intake 5. Given poor PO tolerance and declines NG, consider TPN to optimize nutrition intake IF pt agreeable. IF TPN; Clinimix-E 5/20 at 100ml/hr goal w/ separate 100ml 20% intralipids to run for 12 hours daily at 8.33ml/hr. Would provide 2400ml volume/day, 120g protein, 480g DEX (2.67mg/kg/min), and 2312 kcals. 6. Routine bowel care 7. Scaled wt this admit; subsequent weekly wts 8. DM ed once pt more stable; new onset DM with A1C 7.3%, pt informed of dx per note Addendum: 09/30/21 at [address] Amended: Links added.
--- NOTE | 2021-09-30 16:21 | NUR ---
since pt is not using his is and flutter vavle well, and only moving self from side to side in bed, pt is now off of isolation, according to ID doc one family member is able to visit, at bedside washing pt head to toe and along w/nursing staff encouraging pt to deep breathe and cough, the importance of proning and preforming his own adls
[2021-09-30 18:00] VITALS: BP 120/66
--- NOTE | 2021-09-30 18:15 | NUR ---
gave report to janette laurent
--- NOTE | 2021-09-30 18:35 | NUR ---
Patient in room ORTHO 4021. I have received report from Angelica STALEY and had the opportunity to ask questions and assume patient care.
[2021-09-30] MEDS ORDERED: morphine 2 MG/ML inj. syringe IV ONE (20:25)
[2021-09-30] MEDS: zinc sulfate 220mg capsule PO SCH (20:35)
[2021-09-30] MEDS: Melatonin 3mg tablet PO SCH (20:36)
--- NOTE | 2021-09-30 20:44 | NUR ---
Patient's oxygen saturation low 80's on 60L high flow and 15L nonrebreather. Patient will not lay proned. High flow turned up to 70L. Called MD and received order for morphine for patient's work of breathing but patient refusing medication. RT aware. Patient laying on left side and oxygen saturations came up to mid to high 80's and in no respiratory distress at this time.
[2021-09-30] MEDS: insulin glargine (Lantus) pen - multi-dose SQ SCH (21:35)
[2021-09-30 22:00] VITALS: BP 99/58
[2021-10-01] MEDS: methylPREDNISolone sod succ/PF 40mg inj. IV SCH ×4 (00:01→19:46)
--- NOTE | 2021-10-01 01:30 | NUR ---
Patient feeling short of breath and oxygen saturations lower 80's. Called MD, Received order for Bipap, RT paged.
[2021-10-01 02:00] VITALS: BP 87/65
[2021-10-01 06:00] VITALS: BP 129/78
--- NOTE | 2021-10-01 06:38 | NUR ---
Problems reprioritized. Patient report given, questions answered & plan of care reviewed with Krystal STALEY.
--- NOTE | 2021-10-01 06:43 | NUR ---
Patient in room ORTHO 4021. I have received report from LUÍS Egan and had the opportunity to ask questions and assume patient care.
[2021-10-01 07:18] LABS: BASOPHILS # (AUTO) 0.1 X10'3 (0-0.2); BASOPHILS % (AUTO) 0.4 % (0-1); EOSINOPHILS % (AUTO) 0 % (0-6); HEMATOCRIT 50.1 % (42.0-52.0); HEMOGLOBIN 16.8 g/dl (14.0-17.9); LYMPHOCYTES # (AUTO) 0.2 X10'3 (1.1-4.8); LYMPHOCYTES % (AUTO) 1.1 % (21-51); MEAN CORPUSCULAR HEMOGLOBIN 31.2 PG (27.0-31.0); MEAN CORPUSCULAR HGB CONC 33.5 g/dL (33.0-36.5); MEAN CORPUSCULAR VOLUME 93.2 FL (78-98); MEAN PLATELET VOLUME 10.9 FL (7.4-10.4); MONOCYTES # (AUTO) 0.5 X10'3 (0-0.9); MONOCYTES % (AUTO) 2.5 % (2-12); NEUTROPHILS # (AUTO) 20.2 X10'3 (1.8-7.7); PLATELET COUNT 172 X10'3 (140-440); RED BLOOD COUNT 5.38 X10'6 (4.70-6.10); RED CELL DISTRIBUTION WIDTH 14.7 % (11.5-14.5); WHITE BLOOD COUNT 21.1 X10'3 (4.5-11.0)
[2021-10-01] MEDS: pantoprazole 40mg Tablet.DR PO SCH (07:30)
[2021-10-01 07:41] LABS: D-DIMER 1.43 MG/L FEU (0-0.50)
[2021-10-01 07:43] LABS: ALANINE AMINOTRANSFERASE 74 U/L (12-78); ALBUMIN 1.9 G/DL (3.4-5.0); ALBUMIN/GLOBULIN RATIO 0.4 (1.1-1.5); ALKALINE PHOSPHATASE 82 IU/L (46-116); ANION GAP 7 (8-16); ASPARTATE AMINO TRANSFERASE 41 U/L (10-37); BILIRUBIN,TOTAL 1.2 MG/DL (0.1-1.0); BLOOD UREA NITROGEN 31 MG/DL (7-18); BUN/CREATININE RATIO 35.6 (5.4-32.0); CALCIUM 8.4 MG/DL (8.5-10.1); CHLORIDE 107 MMOL/L (99-107); CREATININE 0.87 MG/DL (0.60-1.10); GLUCOSE 160 MG/DL (70-104); POTASSIUM 4.8 MMOL/L (3.5-5.1); SODIUM 142 MMOL/L (135-145); TOTAL CARBON DIOXIDE 28.2 MMOL/L (24-32); TOTAL PROTEIN 6.7 G/DL (6.4-8.2); eGFR 90 ML/MIN
[2021-10-01] MEDS: cholecalciferol (vitamin D3) 1,000 unit (25mcg) tablet PO SCH (08:00)
[2021-10-01] MEDS: K and/or MAG REPLACEMENT MC SCH ×2 (08:00→19:28)
[2021-10-01] MEDS: aspirin 325mg tablet PO SCH (08:00)
[2021-10-01] MEDS: docusate sod 100mg capsule PO SCH ×2 (08:00→20:00)
[2021-10-01] MEDS: lactose-reduced food (Ensure Enlive) - 237ml bottle PO SCH ×3 (08:00→18:06)
[2021-10-01] MEDS: zinc sulfate 220mg capsule PO SCH ×4 (08:00→20:29)
[2021-10-01] MEDS: ascorbic acid 500mg tablet PO SCH ×4 (08:30→17:02)
[2021-10-01] MEDS: enoxaparin 60mg/0.6ml syringe SUBCUT SCH ×2 (08:38→19:49)
[2021-10-01] MEDS: insulin Lispro (HumaLOG) vial - multi-dose SQ SCH ×3 (09:13→19:54)
[2021-10-01 10:00] VITALS: BP 123/83
[2021-10-01] MEDS: linezolid 600mg tablet PO SCH ×2 (12:15→20:00)
[2021-10-01] MEDS: cefepime 2g/NS 100ml ADVANTAGE 100 ML IV SCH ×2 (12:15→19:46)
[2021-10-01 18:00] VITALS: BP 113/80
[2021-10-01] MEDS: ondansetron/PF 4mg/2ml inj IV PRN (18:00)
--- NOTE | 2021-10-01 18:48 | NUR ---
Problems reprioritized. Patient report given, questions answered & plan of care reviewed with LUÍS Green.
[2021-10-01 19:45] VITALS: BP 131/94
[2021-10-01] MEDS: furosemide 20 MG/2 ML vial IV SCH (19:50)
[2021-10-01] MEDS: Melatonin 3mg tablet PO SCH ×2 (20:29)
[2021-10-01] MEDS ORDERED: linezolid 600mg/300ml PREMIX 300 ML IV ONE (21:05)
[2021-10-01] MEDS: insulin glargine (Lantus) pen - multi-dose SQ SCH (23:02)
[2021-10-02] VITALS (7 sets, daily range): BP systolic 106–139; BP diastolic 60–87
--- NOTE | 2021-10-02 00:48 | NUR ---
LATE ENTRY 10/01/21 PT REFUSED TO TAKE ANYTHING BY MOUTH . PT STATES HE WILL TAKE MEDS TOMORROW . EXPLAINED TO PT THAT HE SHOULD NOT MISS HIS MEDS AND THAT HE HAS AN ANTIBIOTC DUE THAT HELPS FIGHT INFECTION . PT DR HSU WAS NOTIIED OF PTS REFUS TO TAKE PO MEDS REFUSAL ZYVOX IV ORDERED . PT INFORMED
--- NOTE | 2021-10-02 00:55 | NUR ---
PT REFUSING TO TURN FROM SIDE TO SIDE OR PRONE
[2021-10-02] MEDS: normal saline 1000ml 1,000 ML IV SCH (02:54)
[2021-10-02] MEDS: methylPREDNISolone sod succ/PF 40mg inj. IV SCH ×4 (02:54→21:10)
--- NOTE | 2021-10-02 05:42 | NUR ---
PT REFUSED TO EAT OR DRINK ANYTHING DURING MY SHIFT
--- NOTE | 2021-10-02 07:06 | NUR ---
Patient in room ORTHO 4021B. I have received report from LUÍS JOINER and had the opportunity to ask questions and assume patient care.
[2021-10-02] MEDS: docusate sod 100mg capsule PO SCH ×3 (08:00→21:11)
[2021-10-02] MEDS: K and/or MAG REPLACEMENT MC SCH ×2 (08:00→20:00)
[2021-10-02] MEDS: lactose-reduced food (Ensure Enlive) - 237ml bottle PO SCH ×3 (08:00→18:00)
[2021-10-02 08:21] LABS: BASOPHILS # (AUTO) 0.1 X10'3 (0-0.2); BASOPHILS % (AUTO) 0.4 % (0-1); EOSINOPHILS % (AUTO) 0 % (0-6); HEMATOCRIT 49.5 % (42.0-52.0); HEMOGLOBIN 16.4 g/dl (14.0-17.9); LYMPHOCYTES # (AUTO) 0.2 X10'3 (1.1-4.8); LYMPHOCYTES % (AUTO) 1.3 % (21-51); MEAN CORPUSCULAR HEMOGLOBIN 31.2 PG (27.0-31.0); MEAN CORPUSCULAR HGB CONC 33.1 g/dL (33.0-36.5); MEAN CORPUSCULAR VOLUME 94.4 FL (78-98); MEAN PLATELET VOLUME 11.5 FL (7.4-10.4); MONOCYTES # (AUTO) 0.6 X10'3 (0-0.9); MONOCYTES % (AUTO) 3.4 % (2-12); NEUTROPHILS # (AUTO) 15.3 X10'3 (1.8-7.7); NEUTROPHILS % (AUTO) 94.9 % (42-75); PLATELET COUNT 152 X10'3 (140-440); RED BLOOD COUNT 5.25 X10'6 (4.70-6.10); RED CELL DISTRIBUTION WIDTH 14.9 % (11.5-14.5); WHITE BLOOD COUNT 16.1 X10'3 (4.5-11.0)
[2021-10-02] MEDS: ALBUTEROL INHALER 1 PUFF/90 MCG INHALER IH SCH ×2 (08:21→11:49)
[2021-10-02 08:30] LABS: D-DIMER 1.54 MG/L FEU (0-0.50)
[2021-10-02 08:43] LABS: ALANINE AMINOTRANSFERASE 58 U/L (12-78); ALBUMIN 1.9 G/DL (3.4-5.0); ALBUMIN/GLOBULIN RATIO 0.4 (1.1-1.5); ALKALINE PHOSPHATASE 73 IU/L (46-116); ANION GAP 7 (8-16); ASPARTATE AMINO TRANSFERASE 23 U/L (10-37); BLOOD UREA NITROGEN 39 MG/DL (7-18); BUN/CREATININE RATIO 37.1 (5.4-32.0); C-REACTIVE PROTEIN 5.17 MG/DL (0.0-0.5); CALCIUM 8.6 MG/DL (8.5-10.1); CHLORIDE 108 MMOL/L (99-107); CREATININE 1.05 MG/DL (0.60-1.10); GLUCOSE 199 MG/DL (70-104); POTASSIUM 5.8 MMOL/L (3.5-5.1); SODIUM 146 MMOL/L (135-145); TOTAL CARBON DIOXIDE 30.6 MMOL/L (24-32); TOTAL PROTEIN 6.6 G/DL (6.4-8.2); eGFR 72 ML/MIN
[2021-10-02] MEDS: linezolid 600mg tablet PO SCH ×3 (09:58→21:07)
[2021-10-02] MEDS: zinc sulfate 220mg capsule PO SCH ×4 (09:59→21:09)
[2021-10-02] MEDS: furosemide 20 MG/2 ML vial IV SCH ×2 (09:59→20:59)
[2021-10-02] MEDS: cefepime 2g/NS 100ml ADVANTAGE 100 ML IV SCH ×2 (09:59→21:02)
[2021-10-02] MEDS: ascorbic acid 500mg tablet PO SCH ×3 (10:00→17:30)
[2021-10-02] MEDS: cholecalciferol (vitamin D3) 1,000 unit (25mcg) tablet PO SCH (10:00)
[2021-10-02] MEDS: pantoprazole 40mg Tablet.DR PO SCH (10:01)
--- NOTE | 2021-10-02 10:02 | NUR ---
Reassessment: Pt continues eating poorly, now on a regular diet and documented to be refusing meals. Pt with mostly 75-100% PO intake of ONS TID however documented to have refused all ONS on 10/01. Noted pt refusing medications and PO intake per supervisor refining. Pt would benefit from nutrition support given prolonged poor PO intake throughout LOS. Noted pt started on Zyvox however pt refusing med, low tyramine nutrition therapy education not appropriate at this time. LBM 09/30. Will continue to follow closely. Recommendations: 1. Continue regular diet given poor PO intake throughout LOS; change to CHO controlled diet if average PO intake consistently greater than 65% of meals 2. Ensure Enlive TIDWM; Glucerna ONS substitute if out of Ensure 3. Ensure pudding and smoothie WB, shake BIDLD 4. Encourage PO intake 5. Given poor PO tolerance and declines NG, consider TPN to optimize nutrition intake IF pt agreeable. IF TPN; Clinimix-E 5/20 at 100ml/hr goal w/ separate 100ml 20% intralipids to run for 12 hours daily at 8.33ml/hr. Would provide 2400ml volume/day, 120g protein, 480g DEX (2.67mg/kg/min), and 2312 kcals. 6. Routine bowel care 7. Scaled wt this admit; subsequent weekly wts 8. DM ed once pt more stable; new onset DM with A1C 7.3%, pt informed of dx per MD note 9. Low tyramine nutrition therapy education once pt more stable if indicated Addendum: 10/02/21 at [address] Amended: Links added.
[2021-10-02] MEDS: insulin Lispro (HumaLOG) vial - multi-dose SQ SCH ×2 (10:30→20:15)
[2021-10-02] MEDS: ondansetron/PF 4mg/2ml inj IV PRN (12:08)
--- NOTE | 2021-10-02 12:47 | NUR ---
WHILE GOING INTO ROOM TO TAKE BLOOD SUGAR PATIENT SEEMED TO BE IN DISTRESS, WAS POINTING TO MASK AND NOSE WAS BLUE, I RELEASED THE MASK AND PATIENT SIP UP SOME FLUID. PATIENT DEEP BREATHED AND COUGHED TWICE. O2 SAT DROPPED TO 61 WHILE MASK WAS REMOVED. ONCE PATIENT FELT HE WAS NOT GOING TO SIP UP ANYMORE THE MASK WAS REPLACED. PATIENT ENCOURAGED TO TAKE SLOW DEEP BREATHS. O2 SAT CAME BACK UP TO 93. PATIENT REFUSED TO TAKE INSULIN BECAUSE HE WAS HE DID NOT WANT TO FEEL SHAKY. WHILE TALKING WITH THE AND PATIENT IT WAS DISCOVERED THAT AFTER PATIENT HAD TAKEN ALBUTEROL HE HAD THIS SHAKY FEELING AND IT SEEMED TO CAUSE THE VOMIT/SPIT UP SPELL PATIENT ASKED FOR AN ALTURNATIVE TO ALBUTEROL.
[2021-10-02] MEDS: levalbuterol 0.63mg/3ml nebule IH SCH ×2 (16:18→20:38)
--- NOTE | 2021-10-02 19:10 | NUR ---
Problems reprioritized. Patient report given, questions answered & plan of care reviewed with LUÍS CORTES.
[2021-10-02] MEDS: lactobacillus rhamnosus 10,000 MMU CELLS/CAPSULE PO SCH (20:00)
[2021-10-02] MEDS: Melatonin 3mg tablet PO SCH ×2 (21:00→21:09)
[2021-10-02] MEDS: enoxaparin 100mg/ml syringe SUBCUT SCH (21:09)
--- NOTE | 2021-10-02 21:30 | NUR ---
Spoke to Dr Guo to clarify pts npo status . informed pt here with covid and on bipap .pt threw up in bipap several times today, called to ask Dr Guo if po meds should be given tonight. informed pt is not nauseated at this time . pt declined zofran also informed Dr Guo that stated nausea could have come from po antibiotic. Dr Guo stated to give meds that could be given iv . give them iv tonight . zyvox dose changed to iv. charge nurse melvin informed .will report to am nurse to f/u in am .
[2021-10-02] MEDS ORDERED: linezolid 600mg/300ml PREMIX 300 ML IV ONE (22:55)
[2021-10-02] MEDS: insulin glargine (Lantus) pen - multi-dose SQ SCH (23:44)
[2021-10-03 02:00] VITALS: BP 122/77
[2021-10-03] MEDS: methylPREDNISolone sod succ/PF 40mg inj. IV SCH ×4 (02:23→20:08)
[2021-10-03] MEDS: levalbuterol 0.63mg/3ml nebule IH SCH ×4 (02:34→20:11)
[2021-10-03 06:00] VITALS: BP 117/73
--- NOTE | 2021-10-03 06:14 | NUR ---
report to maddi savage. informed her of need to f/u with md regarding zyvox order as well as other po meds .
--- NOTE | 2021-10-03 06:57 | NUR ---
Patient in room [facility] 4021B. I have received report from LUÍS CORTES and had the opportunity to ask questions and assume patient care.
[2021-10-03 07:43] LABS: BASOPHILS # (AUTO) 0.1 X10'3 (0-0.2); BASOPHILS % (AUTO) 0.4 % (0-1); EOSINOPHILS % (AUTO) 0 % (0-6); HEMATOCRIT 47.9 % (42.0-52.0); HEMOGLOBIN 15.9 g/dl (14.0-17.9); LYMPHOCYTES # (AUTO) 0.2 X10'3 (1.1-4.8); LYMPHOCYTES % (AUTO) 1.4 % (21-51); MEAN CORPUSCULAR HEMOGLOBIN 31.3 PG (27.0-31.0); MEAN CORPUSCULAR HGB CONC 33.3 g/dL (33.0-36.5); MEAN CORPUSCULAR VOLUME 93.9 FL (78-98); MONOCYTES # (AUTO) 0.6 X10'3 (0-0.9); MONOCYTES % (AUTO) 3.8 % (2-12); NEUTROPHILS # (AUTO) 14.7 X10'3 (1.8-7.7); NEUTROPHILS % (AUTO) 94.4 % (42-75); PLATELET COUNT 139 X10'3 (140-440); RED CELL DISTRIBUTION WIDTH 15.1 % (11.5-14.5); WHITE BLOOD COUNT 15.6 X10'3 (4.5-11.0)
[2021-10-03 07:46] LABS: D-DIMER 1.13 MG/L FEU (0-0.50)
[2021-10-03] MEDS: docusate sod 100mg capsule PO SCH ×2 (08:00→20:00)
[2021-10-03] MEDS: K and/or MAG REPLACEMENT MC SCH ×2 (08:00→20:00)
[2021-10-03] MEDS: lactose-reduced food (Ensure Enlive) - 237ml bottle PO SCH ×3 (08:00→18:00)
[2021-10-03 08:02] LABS: ALANINE AMINOTRANSFERASE 48 U/L (12-78); ALBUMIN 1.9 G/DL (3.4-5.0); ALBUMIN/GLOBULIN RATIO 0.4 (1.1-1.5); ALKALINE PHOSPHATASE 73 IU/L (46-116); ANION GAP 5 (8-16); ASPARTATE AMINO TRANSFERASE 22 U/L (10-37); BILIRUBIN,TOTAL 0.8 MG/DL (0.1-1.0); BLOOD UREA NITROGEN 39 MG/DL (7-18); BUN/CREATININE RATIO 41.9 (5.4-32.0); C-REACTIVE PROTEIN 2.19 MG/DL (0.0-0.5); CALCIUM 8.4 MG/DL (8.5-10.1); CHLORIDE 107 MMOL/L (99-107); CREATININE 0.93 MG/DL (0.60-1.10); GLUCOSE 181 MG/DL (70-104); POTASSIUM 5.3 MMOL/L (3.5-5.1); SODIUM 143 MMOL/L (135-145); TOTAL CARBON DIOXIDE 30.7 MMOL/L (24-32); TOTAL PROTEIN 6.3 G/DL (6.4-8.2); eGFR 83 ML/MIN
[2021-10-03] MEDS: cholecalciferol (vitamin D3) 1,000 unit (25mcg) tablet PO SCH (09:49)
[2021-10-03] MEDS: linezolid 600mg tablet PO SCH ×2 (09:49→20:14)
[2021-10-03] MEDS: ascorbic acid 500mg tablet PO SCH ×3 (09:49→16:53)
[2021-10-03] MEDS: furosemide 20 MG/2 ML vial IV SCH ×2 (09:49→20:06)
[2021-10-03] MEDS: lactobacillus rhamnosus 10,000 MMU CELLS/CAPSULE PO SCH ×2 (09:49→20:12)
[2021-10-03] MEDS: zinc sulfate 220mg capsule PO SCH ×3 (09:49→23:49)
[2021-10-03] MEDS: cefepime 2g/NS 100ml ADVANTAGE 100 ML IV SCH ×2 (09:49→20:06)
[2021-10-03] MEDS: enoxaparin 100mg/ml syringe SUBCUT SCH ×2 (09:51→20:13)
[2021-10-03] MEDS: insulin Lispro (HumaLOG) vial - multi-dose SQ SCH ×3 (09:58→20:17)
[2021-10-03] MEDS: pantoprazole 40mg Tablet.DR PO SCH (09:59)
[2021-10-03 18:00] VITALS: BP 123/84
--- NOTE | 2021-10-03 18:37 | NUR ---
Problems reprioritized. Patient report given, questions answered & plan of care reviewed with LUÍS GONZALEZ.
[2021-10-03 22:00] VITALS: BP 133/87
[2021-10-03] MEDS: Melatonin 3mg tablet PO SCH (23:48)
[2021-10-03] MEDS: insulin glargine (Lantus) pen - multi-dose SQ SCH (23:52)
[2021-10-04 02:00] VITALS: BP 121/77
[2021-10-04] MEDS: methylPREDNISolone sod succ/PF 40mg inj. IV SCH ×2 (02:12→08:11)
[2021-10-04] MEDS: levalbuterol 0.63mg/3ml nebule IH SCH ×4 (03:33→20:37)
[2021-10-04 06:00] VITALS: BP 117/80
--- NOTE | 2021-10-04 06:15 | NUR ---
Patient in room ORTHO 4021B. I have received report from LUÍS GONZALEZ and had the opportunity to ask questions and assume patient care.
[2021-10-04 07:12] LABS: BASOPHILS # (AUTO) 0.1 X10'3 (0-0.2); BASOPHILS % (AUTO) 0.7 % (0-1); EOSINOPHILS % (AUTO) 0 % (0-6); HEMOGLOBIN 16.3 g/dl (14.0-17.9); LYMPHOCYTES # (AUTO) 0.2 X10'3 (1.1-4.8); LYMPHOCYTES % (AUTO) 1.1 % (21-51); MEAN CORPUSCULAR HEMOGLOBIN 31.1 PG (27.0-31.0); MEAN CORPUSCULAR HGB CONC 33.4 g/dL (33.0-36.5); MEAN CORPUSCULAR VOLUME 93.3 FL (78-98); MEAN PLATELET VOLUME 10.6 FL (7.4-10.4); MONOCYTES # (AUTO) 0.6 X10'3 (0-0.9); MONOCYTES % (AUTO) 3.7 % (2-12); NEUTROPHILS # (AUTO) 14.8 X10'3 (1.8-7.7); NEUTROPHILS % (AUTO) 94.5 % (42-75); PLATELET COUNT 144 X10'3 (140-440); RED BLOOD COUNT 5.25 X10'6 (4.70-6.10); RED CELL DISTRIBUTION WIDTH 14.6 % (11.5-14.5); WHITE BLOOD COUNT 15.7 X10'3 (4.5-11.0)
[2021-10-04 07:44] LABS: ALANINE AMINOTRANSFERASE 62 U/L (12-78); ALBUMIN/GLOBULIN RATIO 0.4 (1.1-1.5); ALKALINE PHOSPHATASE 106 IU/L (46-116); ANION GAP 5 (8-16); ASPARTATE AMINO TRANSFERASE 30 U/L (10-37); BLOOD UREA NITROGEN 42 MG/DL (7-18); CALCIUM 8.5 MG/DL (8.5-10.1); CHLORIDE 107 MMOL/L (99-107); CREATININE 1.05 MG/DL (0.60-1.10); GLUCOSE 149 MG/DL (70-104); POTASSIUM 5.8 MMOL/L (3.5-5.1); SODIUM 146 MMOL/L (135-145); TOTAL CARBON DIOXIDE 34.2 MMOL/L (24-32); TOTAL PROTEIN 6.6 G/DL (6.4-8.2); eGFR 72 ML/MIN
[2021-10-04] MEDS: docusate sod 100mg capsule PO SCH ×2 (08:00→19:12)
[2021-10-04] MEDS: K and/or MAG REPLACEMENT MC SCH ×2 (08:00→19:13)
[2021-10-04] MEDS: cefepime 2g/NS 100ml ADVANTAGE 100 ML IV SCH ×2 (08:11→19:11)
[2021-10-04] MEDS: pantoprazole 40mg Tablet.DR PO SCH (08:11)
[2021-10-04] MEDS: linezolid 600mg tablet PO SCH ×2 (08:11→19:12)
[2021-10-04] MEDS: ascorbic acid 500mg tablet PO SCH ×3 (08:11→16:45)
[2021-10-04] MEDS: furosemide 20 MG/2 ML vial IV SCH (08:11)
[2021-10-04] MEDS: lactobacillus rhamnosus 10,000 MMU CELLS/CAPSULE PO SCH ×2 (08:11→19:12)
[2021-10-04] MEDS: cholecalciferol (vitamin D3) 1,000 unit (25mcg) tablet PO SCH (08:11)
[2021-10-04] MEDS: zinc sulfate 220mg capsule PO SCH ×3 (08:11→21:31)
[2021-10-04] MEDS: enoxaparin 100mg/ml syringe SUBCUT SCH (08:12)
[2021-10-04] MEDS: lactose-reduced food (Ensure Enlive) - 237ml bottle PO SCH ×3 (08:12→17:48)
[2021-10-04 09:26] LABS: C-REACTIVE PROTEIN 0.95 MG/DL (0.0-0.5)
[2021-10-04 10:00] VITALS: BP 125/79
[2021-10-04 10:38] LABS: D-DIMER 1.13 MG/L FEU (0-0.50)
[2021-10-04] MEDS: insulin Lispro (HumaLOG) vial - multi-dose SQ SCH ×2 (13:51→19:16)
[2021-10-04 14:00] VITALS: BP 114/72
[2021-10-04] MEDS: normal saline 1000ml 1,000 ML IV SCH (15:45)
[2021-10-04] MEDS: methylPREDNISolone sod succ 125mg/2ml vial IV SCH (16:45)
[2021-10-04 18:00] VITALS: BP 112/78
--- NOTE | 2021-10-04 18:29 | NUR ---
Problems reprioritized. Patient report given, questions answered & plan of care reviewed with LUÍS [place].
[2021-10-04] MEDS ORDERED: enoxaparin 80mg/0.8ml syringe SUBCUT SCH (20:00)
[2021-10-04] MEDS: Melatonin 3mg tablet PO SCH (21:31)
[2021-10-04] MEDS: insulin glargine (Lantus) pen - multi-dose SQ SCH (21:34)
[2021-10-04 22:00] VITALS: BP 142/74
[2021-10-05] MEDS: methylPREDNISolone sod succ 125mg/2ml vial IV SCH ×4 (00:43→19:05)
[2021-10-05 02:00] VITALS: BP 118/74
[2021-10-05] MEDS: levalbuterol 0.63mg/3ml nebule IH SCH ×4 (03:47→18:41)
[2021-10-05 06:00] VITALS: BP 131/75
--- NOTE | 2021-10-05 06:25 | NUR ---
Patient in room [facility] 4021[facility]. I have received report from LUÍS Dallas and had the opportunity to ask questions and assume patient care.
[2021-10-05 06:59] LABS: BASOPHILS # (AUTO) 0.1 X10'3 (0-0.2); BASOPHILS % (AUTO) 0.3 % (0-1); EOSINOPHILS % (AUTO) 0.1 % (0-6); HEMATOCRIT 49.6 % (42.0-52.0); HEMOGLOBIN 16.3 g/dl (14.0-17.9); LYMPHOCYTES # (AUTO) 0.2 X10'3 (1.1-4.8); LYMPHOCYTES % (AUTO) 1.1 % (21-51); MEAN CORPUSCULAR HGB CONC 32.8 g/dL (33.0-36.5); MEAN CORPUSCULAR VOLUME 94.5 FL (78-98); MEAN PLATELET VOLUME 10.7 FL (7.4-10.4); MONOCYTES # (AUTO) 0.5 X10'3 (0-0.9); MONOCYTES % (AUTO) 2.6 % (2-12); NEUTROPHILS # (AUTO) 17.3 X10'3 (1.8-7.7); NEUTROPHILS % (AUTO) 95.9 % (42-75); PLATELET COUNT 126 X10'3 (140-440); RED BLOOD COUNT 5.25 X10'6 (4.70-6.10); RED CELL DISTRIBUTION WIDTH 14.8 % (11.5-14.5)
[2021-10-05 07:19] LABS: D-DIMER 1.32 MG/L FEU (0-0.50)
[2021-10-05 07:29] LABS: ALANINE AMINOTRANSFERASE 69 U/L (12-78); ALBUMIN/GLOBULIN RATIO 0.5 (1.1-1.5); ALKALINE PHOSPHATASE 73 IU/L (46-116); ANION GAP 6 (8-16); ASPARTATE AMINO TRANSFERASE 45 U/L (10-37); BILIRUBIN,TOTAL 1.3 MG/DL (0.1-1.0); BLOOD UREA NITROGEN 38 MG/DL (7-18); BUN/CREATININE RATIO 40.4 (5.4-32.0); C-REACTIVE PROTEIN 0.46 MG/DL (0.0-0.5); CALCIUM 8.2 MG/DL (8.5-10.1); CHLORIDE 107 MMOL/L (99-107); CREATININE 0.94 MG/DL (0.60-1.10); GLUCOSE 118 MG/DL (70-104); POTASSIUM 5.3 MMOL/L (3.5-5.1); SODIUM 144 MMOL/L (135-145); TOTAL CARBON DIOXIDE 31.5 MMOL/L (24-32); TOTAL PROTEIN 6.2 G/DL (6.4-8.2); eGFR 82 ML/MIN
[2021-10-05] MEDS: docusate sod 100mg capsule PO SCH ×2 (08:00→20:00)
[2021-10-05] MEDS ORDERED: etomidate 2mg/ml inj. ONE (08:00)
[2021-10-05] MEDS: K and/or MAG REPLACEMENT MC SCH ×2 (08:00→20:00)
[2021-10-05] MEDS: lactose-reduced food (Ensure Enlive) - 237ml bottle PO SCH ×2 (08:00→13:00)
[2021-10-05] MEDS ORDERED: enoxaparin 60mg/0.6ml syringe SUBCUT SCH (08:11)
[2021-10-05] MEDS: cefepime 2g/NS 100ml ADVANTAGE 100 ML IV SCH ×2 (08:49→19:04)
[2021-10-05] MEDS: linezolid 600mg tablet PO SCH ×2 (08:49→19:07)
[2021-10-05] MEDS: lactobacillus rhamnosus 10,000 MMU CELLS/CAPSULE PO SCH ×2 (08:49→19:04)
[2021-10-05] MEDS: cholecalciferol (vitamin D3) 1,000 unit (25mcg) tablet PO SCH (08:49)
[2021-10-05] MEDS: furosemide 20 MG/2 ML vial IV SCH (08:49)
[2021-10-05] MEDS: ascorbic acid 500mg tablet PO SCH ×3 (08:49→17:17)
[2021-10-05] MEDS: zinc sulfate 220mg capsule PO SCH ×3 (08:49→19:07)
[2021-10-05] MEDS: pantoprazole 40mg Tablet.DR PO SCH (08:49)
[2021-10-05 10:00] VITALS: BP 116/64
[2021-10-05] MEDS: LORazepam 1 MG tablet PO PRN (11:15)
--- NOTE | 2021-10-05 12:17 | NUR ---
F/u 10/05: Pt PO remains poor 0-25% avg meals 17 days now refusing ONS per EMR not meeting needs. Now on full face bipap and previously refused EN option as well this admit. RD d/w RN who reports continues to bring in soups and protein drinks which pt is drinking TID. Noted pt vomiting episodes into bipap 10/02 though RN reports no further episodes or PO tolerance concerns at this time. Per RN; pt currently at bedside. RD contacted pt via TC; reports has been focused on making high protein homemade soups and buying higher protein/low carb drinks for pt. unable to remember both drink names though one is "Rebel". RD encouraged that higher carb-containing supplements okay at this time given poor PO hx in order to provide additional kcals. reports relief that can purchase other supplements for pt. "Rebel" protein drink contains 180 kcals, 16g protein, and 11g carbs on their nutrition facts website. Given pt poor PO intake 17 days and mild weakness meets minimum non-severe malnutrition criteria; MD notified. LBM 10/04. Will continue to monitor for further nutrition intervention needs. Recommendations: 1. Continue regular diet given poor PO intake throughout LOS; change to CHO controlled diet if average PO intake consistently greater than 65% of meals 2. Encourage PO soups and protein/kcal supplement drinks TIDWM brought in by 3. Given poor PO intake 17 days and declines EN, consider supplemental TPN to optimize nutrition intake IF pt agreeable. IF TPN; Clinimix-E 5/20 at 100ml/hr goal w/ separate 100ml 20% intralipids to run for 12 hours daily at 8.33ml/hr. Would provide 2400ml volume/day, 120g protein, 480g DEX (2.67mg/kg/min), and 2312 kcals. 4. Routine bowel care 5. Scaled wt this admit; subsequent weekly wts 6. DM ed once pt more stable; new onset DM with A1C 7.3%, pt informed of dx per MD note 7. Low tyramine nutrition therapy education once pt more appropriate if indicated Addendum: 10/05/21 at [address] Amended: Links added.
[2021-10-05 14:00] VITALS: BP 126/83
[2021-10-05 14:18] LABS: ABG BASE EXCESS 3.6 mmol/L (-2.0-2.0); ABG HCO3 27.7 mmol/L (22.0-26.0); ABG OXYGEN SATURATION 90.8 % (94-97); ABG PCO2 (T) 39.8 mmHg (35.0-48.0); ABG PO2 (T) 54.6 mmHg (75.0-100.0); ALLEN'S TEST POSITIVE; FCOHb 0.6 % (0.0-3.9); FMetHb 0.1 % (0.0-1.5); FO2Hb 90.2 % (94-97); RESPIRATORY RATE 12 b/min; TOTAL HEMOGLOBIN 17.8 G/dl (14.0-18.0)
[2021-10-05] MEDS ORDERED: ipratropium 0.5 MG/2.5ML nebule IH PRN (14:35)
[2021-10-05] MEDS: acetaminophen 325mg tablet PO PRN (15:36)
--- NOTE | 2021-10-05 16:06 | NUR ---
Page Sent PAGER ID: [phone] MESSAGE: Re: Mitul Perez [id number] pt complains of throat/neck aches/pain and said his chest was starting to hurt. Completed EKG, it is in pt's chart. Thank you!
--- NOTE | 2021-10-05 17:52 | NUR ---
Spoke with Dr. Metcalf. Pt has pneumomediastium per today's chest x-ray. Daily chest x-rays are ordered, RT cannot turn pressure down on Bipap because pt desats. If pt's chest balloons out, Dr. Milner will make an incision in his chest to let the air out.
[2021-10-05 18:00] VITALS: BP_SYST 116; BP_SYST 126; BP_DIAS 69; BP_DIAS 83
--- NOTE | 2021-10-05 18:30 | NUR ---
noted pt on bipap. I will monitor oxygen levels and alarms and notify RT for any bipap needs or alarms and RT responsible for charting levels and pressures.
--- NOTE | 2021-10-05 18:41 | NUR ---
Problems reprioritized. Patient report given, questions answered & plan of care reviewed with LUÍS Hatfield.
--- NOTE | 2021-10-05 18:45 | NUR ---
pt c/o right chest wall pain. noted pt had possible pneumo. no crepitus noted. pt has only norco and tylenol. requested morphine from MD to help with severe pain. Nepo ordered to monitor pt sats and chest. if further distress notify MD for possible placement of chest tube. RT states they decreased the pressure on the bipap to 18/12 and will monitor sats to see how he tolerates pressure.
--- NOTE | 2021-10-05 19:00 | NUR ---
pt didnt' eat dinner. will monitor glucose at 2100. no coverage at this time.
[2021-10-05] MEDS: enoxaparin 60mg/0.6ml syringe SUBCUT SCH (19:05)
[2021-10-05] MEDS: morphine 2 MG/ML inj. syringe IV PRN (19:06)
[2021-10-05] MEDS ORDERED: enoxaparin 100mg/ml syringe SUBCUT SCH (20:00)
--- NOTE | 2021-10-05 21:13 | NUR ---
sats stable 92%. pt more relaxed. will continue monitoring sats and notify RT if pt distressed.
[2021-10-05 22:00] VITALS: BP 123/80
[2021-10-05] MEDS: insulin glargine (Lantus) pen - multi-dose SQ SCH (22:52)
[2021-10-05] MEDS: Melatonin 3mg tablet PO SCH (22:53)
[2021-10-05] MEDS: bacitracin 15gm ointment TP SCH (23:05)
--- NOTE | 2021-10-05 23:11 | NUR ---
sent page on critical trop. Alysia [id number] - Pt Mitul Perez [id number] -first critical troponin on 6 hour trop is 82. no pain at this time.
[2021-10-06] VITALS (16 sets, daily range): BP systolic 93–130; BP diastolic 66–82
[2021-10-06] MEDS: methylPREDNISolone sod succ 125mg/2ml vial IV SCH ×3 (02:22→20:06)
[2021-10-06] MEDS: morphine 2 MG/ML inj. syringe IV PRN ×6 (03:07→23:08)
[2021-10-06] MEDS: levalbuterol 0.63mg/3ml nebule IH SCH ×4 (03:21→20:22)
[2021-10-06] MEDS: LORazepam 1 MG tablet PO PRN (04:11)
--- NOTE | 2021-10-06 04:30 | NUR ---
ativan given - sats staying 87%. pt still anxious. removed pulse ox that is at bedside b/c making patient more anxious.
--- NOTE | 2021-10-06 04:32 | NUR ---
RT changed pt to CPAP from bipap pressure 16. will see how patient tolerates. blood drawn - just enough for troponin. pt agreed to take ativan for anxiety as he took it earlier today and it may have helped.
[2021-10-06 04:47] LABS: ALANINE AMINOTRANSFERASE 85 U/L (12-78); ALBUMIN 2.3 G/DL (3.4-5.0); ALBUMIN/GLOBULIN RATIO 0.5 (1.1-1.5); ALKALINE PHOSPHATASE 81 IU/L (46-116); ANION GAP 8 (8-16); ASPARTATE AMINO TRANSFERASE 51 U/L (10-37); BILIRUBIN,TOTAL 1.6 MG/DL (0.1-1.0); BLOOD UREA NITROGEN 36 MG/DL (7-18); BUN/CREATININE RATIO 39.1 (5.4-32.0); CALCIUM 8.5 MG/DL (8.5-10.1); CHLORIDE 105 MMOL/L (99-107); CREATININE 0.92 MG/DL (0.60-1.10); GLUCOSE 182 MG/DL (70-104); POTASSIUM 5.4 MMOL/L (3.5-5.1); SODIUM 141 MMOL/L (135-145); TOTAL PROTEIN 6.8 G/DL (6.4-8.2); eGFR 84 ML/MIN
[2021-10-06 04:50] LABS: C-REACTIVE PROTEIN 0.51 MG/DL (0.0-0.5)
--- NOTE | 2021-10-06 05:21 | NUR ---
sats 93% patient sleeping w/o disterss
--- NOTE | 2021-10-06 06:00 | NUR ---
pagelily Reynolds r/t sats staying 79% to request transfer. no response. Addendum: 10/06/21 at 0616 by Alysia Izaguirre RN omit - wrong patient
--- NOTE | 2021-10-06 06:18 | NUR ---
Patient in room [facility] 4021B. I have received report from LUÍS PATE and had the opportunity to ask questions and assume patient care.
--- NOTE | 2021-10-06 06:32 | NUR ---
reported to days. noted pt sats stable with current settings. noted cxr to evaulate for mediastinum pleural effusion
[2021-10-06] MEDS: pantoprazole 40mg Tablet.DR PO SCH (07:30)
[2021-10-06] MEDS: K and/or MAG REPLACEMENT MC SCH (08:00)
[2021-10-06 08:01] LABS: BASOPHILS # (AUTO) 0.1 X10'3 (0-0.2); BASOPHILS % (AUTO) 0.3 % (0-1); EOSINOPHILS % (AUTO) 0 % (0-6); HEMATOCRIT 48.3 % (42.0-52.0); HEMOGLOBIN 16.2 g/dl (14.0-17.9); LYMPHOCYTES # (AUTO) 0.2 X10'3 (1.1-4.8); LYMPHOCYTES % (AUTO) 0.8 % (21-51); MEAN CORPUSCULAR HEMOGLOBIN 31.2 PG (27.0-31.0); MEAN CORPUSCULAR HGB CONC 33.5 g/dL (33.0-36.5); MEAN CORPUSCULAR VOLUME 93.1 FL (78-98); MONOCYTES # (AUTO) 0.6 X10'3 (0-0.9); NEUTROPHILS # (AUTO) 19.2 X10'3 (1.8-7.7); NEUTROPHILS % (AUTO) 95.9 % (42-75); PLATELET COUNT 130 X10'3 (140-440); RED BLOOD COUNT 5.19 X10'6 (4.70-6.10)
[2021-10-06 08:27] LABS: D-DIMER 0.85 MG/L FEU (0-0.50)
[2021-10-06] MEDS: ascorbic acid 500mg tablet PO SCH ×3 (08:30→16:57)
--- NOTE | 2021-10-06 08:41 | NUR ---
Page Sent PAGER ID: [phone] MESSAGE: ANDREY [id number]-RE: [id number] ELIDIA ALVARES...REC'D CALL FROM RADIOLOGIST, DR. DRAKE, PT HAS A RIGHT APICAL PNEUMOTHORAX IN ADDITION TO PNEUMOMEDIASTINUM SINCE PREVIOUS CXR
[2021-10-06] MEDS: cefepime 2g/NS 100ml ADVANTAGE 100 ML IV SCH ×2 (09:18→20:00)
[2021-10-06] MEDS: furosemide 20 MG/2 ML vial IV SCH (09:19)
[2021-10-06 10:00] LABS: LARGE PLATELETS FEW; PLATELET ESTIMATE DECREASED
[2021-10-06] MEDS: insulin Lispro (HumaLOG) vial - multi-dose SQ SCH (11:03)
--- NOTE | 2021-10-06 11:38 | NUR ---
Attempted to call for report; waiting conductor symphonic orchestra back from Irma STALEY.
--- NOTE | 2021-10-06 12:00 | NUR ---
Problems reprioritized. Patient report given, questions answered & plan of care reviewed with LUÍS DILLARD IN CICU..
[2021-10-06] MEDS: enoxaparin 60mg/0.6ml syringe SUBCUT SCH ×2 (12:58→20:47)
[2021-10-06] MEDS: normal saline 1000ml 1,000 ML IV SCH (12:58)
[2021-10-06] MEDS: lactobacillus rhamnosus 10,000 MMU CELLS/CAPSULE PO SCH ×2 (12:59→20:00)
[2021-10-06] MEDS: linezolid 600mg tablet PO SCH ×2 (12:59→20:00)
[2021-10-06] MEDS: docusate sod 100mg capsule PO SCH ×2 (12:59→20:00)
[2021-10-06] MEDS: cholecalciferol (vitamin D3) 1,000 unit (25mcg) tablet PO SCH (12:59)
[2021-10-06] MEDS: zinc sulfate 220mg capsule PO SCH ×3 (12:59→20:48)
[2021-10-06] MEDS: bacitracin 15gm ointment TP SCH ×3 (13:00→20:49)
--- NOTE | 2021-10-06 13:38 | NUR ---
TPN consult: Per CM notes pt transferred to CICU d/t worsening respiratory status, currently on BiPAP at 100% with saturations dropping. TPN appropriate at this time d/t prolonged poor PO intake and respiratory status. Pt pending PICC placement at this time. TPN recommendations below were d/w clinical pharmacist. Will continue to follow closely. Recommendations: 1) Continuous TPN using 2:1 Clinimix-E 5/20 at 107 mL/hr with separate 100 mL 20% intralipids to run for 12 hours daily at 8.33 mL/hr. To provide 2668 mL total volume/day, 2460 kcal, 128 g AA, 513.6 g dext (2.85 mg/kg/min dext load), and 20 g lipids 2) Prealbumin and TG q Monday/ 3) Daily scaled weights 4) PO diet advancement to regular as medically indicated IF pt able to tolerate PO intake 5) DM ed once pt more stable; new onset DM with A1C 7.3%, pt informed of dx per MD note 6) Low tyramine nutrition therapy education once pt more appropriate if indicated Addendum: 10/06/21 at [address] Amended: Links added.
[2021-10-06] MEDS ORDERED: Dextrose 10%-water IV solution 1,000 ML IV PRN (16:05)
[2021-10-06 17:34] LABS: MAGNESIUM 2.8 MG/DL (1.5-2.4); PHOSPHORUS 3.5 MG/DL (2.3-4.5); PREALBUMIN 24.9 MG/DL (19-36)
[2021-10-06] MEDS: fat emulsion IV bag 250 ML IV SCH (20:00)
[2021-10-06] MEDS ORDERED: ZINC/COPPER/MANGANESE/SELENIUM 1 ML, chromic chloride inj. 10 MCG in AA 5%/CALCIUM/LYTE... IV SCH (20:00)
[2021-10-06] MEDS: Melatonin 3mg tablet PO SCH (20:47)
[2021-10-06] MEDS: insulin glargine (Lantus) pen - multi-dose SQ SCH (21:40)
[2021-10-06] MEDS: insulin regular, human U-100 3ml vial - multi-dose SQ SCH (21:41)
[2021-10-06] MEDS ORDERED: dexmedetomidine/D5W 100mL 100 ML IV SCH (23:30)
[2021-10-06] MEDS: dexmedetomidine/D5W 100mL 100 ML IV SCH (23:47)
[2021-10-07] VITALS (20 sets, daily range): BP systolic 78–149; BP diastolic 49–94
[2021-10-07] MEDS ORDERED: haloperidol lactate 5mg/ml inj IV PRN (00:30)
[2021-10-07] MEDS: insulin regular, human U-100 3ml vial - multi-dose SQ SCH ×2 (01:46→09:12)
[2021-10-07] MEDS: levalbuterol 0.63mg/3ml nebule IH SCH ×2 (03:01→07:35)
[2021-10-07 03:39] LABS: D-DIMER 1.22 MG/L FEU (0-0.50)
[2021-10-07] MEDS: dexmedetomidine/D5W 100mL 100 ML IV SCH ×2 (05:26→14:05)
[2021-10-07 06:20] LABS: BASOPHILS # (AUTO) 0.1 X10'3 (0-0.2); BASOPHILS % (AUTO) 0.3 % (0-1); EOSINOPHILS % (AUTO) 0 % (0-6); HEMATOCRIT 45.5 % (42.0-52.0); HEMOGLOBIN 15.2 g/dl (14.0-17.9); LYMPHOCYTES # (AUTO) 0.1 X10'3 (1.1-4.8); LYMPHOCYTES % (AUTO) 0.8 % (21-51); MEAN CORPUSCULAR HEMOGLOBIN 31.2 PG (27.0-31.0); MEAN CORPUSCULAR HGB CONC 33.4 g/dL (33.0-36.5); MEAN CORPUSCULAR VOLUME 93.5 FL (78-98); MONOCYTES # (AUTO) 0.4 X10'3 (0-0.9); MONOCYTES % (AUTO) 2.3 % (2-12); NEUTROPHILS # (AUTO) 17.2 X10'3 (1.8-7.7); NEUTROPHILS % (AUTO) 96.6 % (42-75); PLATELET COUNT 96 X10'3 (140-440); RED BLOOD COUNT 4.87 X10'6 (4.70-6.10); RED CELL DISTRIBUTION WIDTH 14.8 % (11.5-14.5); WHITE BLOOD COUNT 17.8 X10'3 (4.5-11.0)
[2021-10-07 06:27] LABS: ALANINE AMINOTRANSFERASE 80 U/L (12-78); ALBUMIN 2.1 G/DL (3.4-5.0); ALBUMIN/GLOBULIN RATIO 0.6 (1.1-1.5); ALKALINE PHOSPHATASE 67 IU/L (46-116); ANION GAP 5 (8-16); ASPARTATE AMINO TRANSFERASE 41 U/L (10-37); BILIRUBIN,TOTAL 1.3 MG/DL (0.1-1.0); BLOOD UREA NITROGEN 41 MG/DL (7-18); BUN/CREATININE RATIO 49.4 (5.4-32.0); CALCIUM 8.1 MG/DL (8.5-10.1); CHLORIDE 109 MMOL/L (99-107); CREATININE 0.83 MG/DL (0.60-1.10); GLUCOSE 240 MG/DL (70-104); MAGNESIUM 2.8 MG/DL (1.5-2.4); PHOSPHORUS 3.3 MG/DL (2.3-4.5); POTASSIUM 5.5 MMOL/L (3.5-5.1); PREALBUMIN 22.3 MG/DL (19-36); SODIUM 143 MMOL/L (135-145); TOTAL CARBON DIOXIDE 28.9 MMOL/L (24-32); TOTAL PROTEIN 5.9 G/DL (6.4-8.2); TRIGLYCERIDES 260 MG/DL (20-135); eGFR > 90 ML/MIN
[2021-10-07] MEDS: K and/or MAG REPLACEMENT MC SCH ×3 (06:33→20:00)
[2021-10-07] MEDS: enoxaparin 60mg/0.6ml syringe SUBCUT SCH (08:00)
[2021-10-07] MEDS ORDERED: MESSAGE TO NURSING IV ONE (08:00)
[2021-10-07] MEDS: cefepime 2g/NS 100ml ADVANTAGE 100 ML IV SCH ×2 (08:15→20:00)
[2021-10-07] MEDS: salt irrigation nasal spray 45 ML SPRAY NS PRN (08:16)
[2021-10-07] MEDS: docusate sod 100mg capsule PO SCH ×2 (08:17→19:44)
[2021-10-07] MEDS: methylPREDNISolone sod succ 125mg/2ml vial IV SCH ×2 (08:17→20:00)
[2021-10-07] MEDS: linezolid 600mg tablet PO SCH ×2 (08:17→19:44)
[2021-10-07] MEDS: zinc sulfate 220mg capsule PO SCH ×3 (08:18→21:00)
[2021-10-07] MEDS: pantoprazole 40mg Tablet.DR PO SCH (08:19)
[2021-10-07] MEDS: ascorbic acid 500mg tablet PO SCH ×3 (08:19→17:30)
[2021-10-07] MEDS: lactobacillus rhamnosus 10,000 MMU CELLS/CAPSULE PO SCH ×2 (08:19→20:00)
[2021-10-07] MEDS: cholecalciferol (vitamin D3) 1,000 unit (25mcg) tablet PO SCH (08:20)
[2021-10-07] MEDS: furosemide 20 MG/2 ML vial IV SCH (08:20)
[2021-10-07] MEDS: bacitracin 15gm ointment TP SCH ×3 (08:20→21:00)
[2021-10-07 08:45] LABS: PLATELET ESTIMATE DECREASED; TOTAL CELLS COUNTED 100
[2021-10-07 08:46] LABS: LARGE PLATELETS MODERATE; SMUDGE CELLS 1+; TOXIC GRANULATION 1+; TOXIC VACUOLATION 3+
[2021-10-07] MEDS ORDERED: MVI, adult No.4 with vit. K 10 ML in dextrose 5% water 500ml 500 ML IV SCH ×2 (10:00)
[2021-10-07] MEDS: fondaparinux 2.5 MG/0.5 ML syringe SUBCUT SCH (10:36)
[2021-10-07] MEDS ORDERED: dextrose 50%-water 50ml dispensing syringe IV PRN (14:35)
[2021-10-07] MEDS ORDERED: fentaNYL/PF 50MCG/1 ML 2ML syringe IV PRN (16:10)
[2021-10-07] MEDS ORDERED: midazolam 1 mg/ML 2ml injection IV ONE (16:10)
[2021-10-07] MEDS ORDERED: FENTANYL-0.9 % NACL/PF 100 ML IV PRN (16:10)
[2021-10-07] MEDS ORDERED: ipratropium/albuterol 3ml nebule NEB PRN (16:10)
[2021-10-07] MEDS ORDERED: midazolam 1 mg/ML 2ml injection ONE (16:12)
[2021-10-07] MEDS: Insulin Reg/NS 100units/100mL 100 ML IV SCH (17:14)
[2021-10-07] MEDS: NORepinephrine 8mg/ 250ml NS 250 ML IV PRN (18:07)
[2021-10-07 18:14] LABS: ABG BASE EXCESS 1.8 mmol/L (-2.0-2.0); ABG HCO3 29.5 mmol/L (22.0-26.0); ABG OXYGEN SATURATION 91.2 % (94-97); ABG PCO2 (T) 55.9 mmHg (35.0-48.0); ABG PO2 (T) 60.3 mmHg (75.0-100.0); ALLEN'S TEST POSITIVE; FCOHb 0.8 % (0.0-3.9); FMetHb 0.2 % (0.0-1.5); FO2Hb 90.3 % (94-97); PATIENT TEMPERATURE 35.7; PEEP 10 cm H2O; RESPIRATORY RATE 20 b/min; TIDAL VOLUME 400 mL; TOTAL HEMOGLOBIN 14.8 G/dl (14.0-18.0)
[2021-10-07] MEDS: fat emulsion IV bag 250 ML IV SCH (20:00)
[2021-10-07] MEDS ORDERED: ZINC/COPPER/MANGANESE/SELENIUM 1 ML, chromic chloride inj. 10 MCG in AA 5%/CALCIUM/LYTE... IV SCH (20:00)
[2021-10-07] MEDS: ipratropium/albuterol 3ml nebule NEB SCH ×2 (20:35→23:17)
[2021-10-07] MEDS: insulin glargine (Lantus) pen - multi-dose SQ SCH (21:00)
[2021-10-07] MEDS: Melatonin 3mg tablet PO SCH (21:00)
[2021-10-07] MEDS: midazolam 100mg in NS 100ml 100 ML IV PRN (23:20)
[2021-10-08] VITALS (14 sets, daily range): BP systolic 86–120; BP diastolic 45–90
[2021-10-08] MEDS ORDERED: fentaNYL/PF inj 2,500 MCG in normal saline 250ml IV soln 200 ML IV PRN (01:30)
[2021-10-08] MEDS: fentaNYL/PF inj 2,500 MCG in normal saline 250ml IV soln 200 ML IV PRN ×2 (02:56→10:55)
[2021-10-08] MEDS: ipratropium/albuterol 3ml nebule NEB SCH ×3 (03:16→10:30)
[2021-10-08] MEDS: Insulin Reg/NS 100units/100mL 100 ML IV SCH ×3 (03:18→10:59)
[2021-10-08 03:49] LABS: ABG OXYGEN SATURATION 92.1 % (94-97); ABG PCO2 (T) 89.6 mmHg (35.0-48.0); ALLEN'S TEST Modified; FCOHb 0.8 % (0.0-3.9); FMetHb 0.5 % (0.0-1.5); FO2Hb 90.9 % (94-97); PATIENT TEMPERATURE 38.1; RESPIRATORY RATE 22 b/min; TIDAL VOLUME 450 mL; TOTAL HEMOGLOBIN 16.6 G/dl (14.0-18.0)
[2021-10-08] MEDS ORDERED: albumin (Human) 5% 250ml 250 ML IV ONE (05:00)
[2021-10-08 05:14] LABS: PEEP 10 cm H2O
[2021-10-08 06:12] LABS: HEMOGLOBIN 15.3 g/dl (14.0-17.9); MEAN CORPUSCULAR HGB CONC 32.4 g/dL (33.0-36.5)
[2021-10-08 06:13] LABS: HEMATOCRIT 47.2 % (42.0-52.0); MEAN CORPUSCULAR HEMOGLOBIN 30.9 PG (27.0-31.0); MEAN CORPUSCULAR VOLUME 95.6 FL (78-98); MEAN PLATELET VOLUME 10.8 FL (7.4-10.4); PLATELET COUNT 110 X10'3 (140-440); RED BLOOD COUNT 4.93 X10'6 (4.70-6.10); RED CELL DISTRIBUTION WIDTH 15.2 % (11.5-14.5)
[2021-10-08 06:16] LABS: D-DIMER 1.75 MG/L FEU (0-0.50)
[2021-10-08 06:17] LABS: WHITE BLOOD COUNT 28.7 X10'3 (4.5-11.0)
[2021-10-08 06:23] LABS: ALANINE AMINOTRANSFERASE 93 U/L (12-78); ALBUMIN 2.3 G/DL (3.4-5.0); ALBUMIN/GLOBULIN RATIO 0.6 (1.1-1.5); ALKALINE PHOSPHATASE 76 IU/L (46-116); ANION GAP 2 (8-16); ASPARTATE AMINO TRANSFERASE 42 U/L (10-37); BLOOD UREA NITROGEN 54 MG/DL (7-18); BUN/CREATININE RATIO 40.6 (5.4-32.0); C-REACTIVE PROTEIN 0.49 MG/DL (0.0-0.5); CALCIUM 8.3 MG/DL (8.5-10.1); CHLORIDE 105 MMOL/L (99-107); CREATININE 1.33 MG/DL (0.60-1.10); GLUCOSE 330 MG/DL (70-104); MAGNESIUM 2.7 MG/DL (1.5-2.4); POTASSIUM 5.9 MMOL/L (3.5-5.1); SODIUM 138 MMOL/L (135-145); TOTAL CARBON DIOXIDE 30.7 MMOL/L (24-32); TOTAL PROTEIN 6.1 G/DL (6.4-8.2); eGFR 55 ML/MIN
[2021-10-08 06:36] LABS: PLATELET ESTIMATE DECREASED; TOTAL CELLS COUNTED 100
[2021-10-08] MEDS: midazolam 100mg in NS 100ml 100 ML IV PRN (06:59)
[2021-10-08] MEDS: NORepinephrine 8mg/ 250ml NS 250 ML IV PRN (07:01)
[2021-10-08] MEDS: insulin regular, human U-100 3ml vial - multi-dose SQ SCH ×3 (07:53→11:00)
[2021-10-08] MEDS: docusate sod 100mg capsule PO SCH (08:00)
[2021-10-08] MEDS: K and/or MAG REPLACEMENT MC SCH (08:00)
[2021-10-08] MEDS: acetaminophen 325mg tablet PO PRN (08:16)
[2021-10-08 08:17] LABS: ABG BASE EXCESS -3.7 mmol/L (-2.0-2.0); ABG HCO3 27.9 mmol/L (22.0-26.0); ABG OXYGEN SATURATION 96.6 % (94-97); ABG PCO2 (T) 88.1 mmHg (35.0-48.0); ABG PO2 (T) 102.9 mmHg (75.0-100.0); ALLEN'S TEST POSITIVE; FCOHb 0.6 % (0.0-3.9); FMetHb 0.5 % (0.0-1.5); FO2Hb 95.5 % (94-97); PATIENT TEMPERATURE 38.5; PEEP 10 cm H2O; RESPIRATORY RATE 24 b/min; TIDAL VOLUME 450 mL; TOTAL HEMOGLOBIN 16.4 G/dl (14.0-18.0)
[2021-10-08] MEDS: cefepime 2g/NS 100ml ADVANTAGE 100 ML IV SCH (09:46)
[2021-10-08] MEDS: ascorbic acid 500mg tablet PO SCH (11:01)
[2021-10-08] MEDS: linezolid 600mg tablet PO SCH (11:01)
[2021-10-08] MEDS: lactobacillus rhamnosus 10,000 MMU CELLS/CAPSULE PO SCH (11:01)
[2021-10-08] MEDS: pantoprazole 40mg Tablet.DR PO SCH (11:01)
[2021-10-08] MEDS: zinc sulfate 220mg capsule PO SCH (11:01)
[2021-10-08] MEDS: cholecalciferol (vitamin D3) 1,000 unit (25mcg) tablet PO SCH (11:01)
[2021-10-08] MEDS: furosemide 20 MG/2 ML vial IV SCH (11:02)
[2021-10-08] MEDS: methylPREDNISolone sod succ 125mg/2ml vial IV SCH (11:02)
[2021-10-08] MEDS: fondaparinux 2.5 MG/0.5 ML syringe SUBCUT SCH (11:02)
[2021-10-08] MEDS: bacitracin 15gm ointment TP SCH (11:03)
--- NOTE | 2021-10-08 11:22 | NUR ---
TF consult: Pt intubated d/t worsening respiratory failure. D/w charge auditor to wean TPN with initiation of tube feed. TF goal rate will meet 100% of patient's estimated energy needs though only 78% estimated protein needs using IBW +10% given Vital AF to be used as substitution for Vital High Protein d/t product shortage. LBM 10/07 per I&O, with routine and PRN bowel care available. Will continue to follow. Recommendations: 1) Given shortage of Vital High Protein, continuous Vital AF with goal rate of 80 mL/hr to provide 1920 mL total volume/day, 2304 kcal, 144 g protein, and 1557 mL water. Will meet 100% EEN and 78% EPN 2) Once Vital High Protein available, continuous TF at 95 mL/hr 3) Additional 200 mL water flush Q4H; monitor serum Na 4) Prealbumin q Monday/ 5) Daily scaled weights 6) Wean TPN with initiation of TF 7) DM ed once pt stable following extubation; new onset DM with A1C 7.3%, pt informed of dx per MD note 8) Low tyramine nutrition therapy education once pt stable following extubation if indicated Addendum: 10/08/21 at [address] Amended: Links added.
--- NOTE | 2021-10-08 12:15 | NUR ---
Dr Jovel speaking to the family at this time in regards to withdrawal of care. Pending confirmation
[2021-10-08 12:22] LABS: CLARITY,URINE CLOUDY (Clear); COLOR,URINE YELLOW (Yellow); GLUCOSE, URINE NEGATIVE (Neg); KETONES,URINE NEGATIVE (Neg); OCCULT BLOOD,URINE LARGE (Neg); PROTEIN,URINE TRACE mg/dl (Neg); UA COLLECTION TYPE FOLEY CATH
[2021-10-08 12:23] LABS: LEUKOCYTE ESTERASE ,URINE NEGATIVE (Neg); NITRITES, URINE NEGATIVE (Neg); UROBILINOGEN,URINE 0.2 E.U/dL (0.2-1.0)
[2021-10-08 12:32] LABS: AMORPHOUS URATES 1+; BACTERIA,URINE NONE SEEN /HPF (Neg); HYALINE CASTS 0-3 /LPF (NEGATIVE); MUCUS STRANDS FEW /LPF (Neg); SQUAMOUS EPITHELIAL CELL,UR NONE SEEN /LPF (FEW)
[2021-10-08] MEDS ORDERED: mineral oil/petrolatum ophthal oint EACHEYE SCH (20:00)
== END 2021-10-08 17:33 | DRG 208 ==
LOC: ER 12:44 → ORTHO 4S 16:20 → ER 16:46 → ORTHO 4S 09-19 01:30 → UNDOADMIN 09-19 01:32 → CICU 2S 10-06 12:13
PROVIDERS: ADMIT Internal Medicine; ATTEND Internal Medicine Critical Care Medicine
PROC: XW033E5 Introduction of Remdesivir Anti-infective into Peripheral Vein, Percutaneous Approach, New Technology Group 5 (ICD-10-PCS; 2021-09-18)
PROC: 5A0945A Assistance with Respiratory Ventilation, 24-96 Consecutive Hours, High Flow/Velocity Cannula (ICD-10-PCS; 2021-09-20)
PROC: B32T1ZZ Computerized Tomography (CT Scan) of Left Pulmonary Artery using Low Osmolar Contrast (ICD-10-PCS; 2021-09-21)
PROC: B3201ZZ Computerized Tomography (CT Scan) of Thoracic Aorta using Low Osmolar Contrast (ICD-10-PCS; 2021-09-21)
PROC: B32S1ZZ Computerized Tomography (CT Scan) of Right Pulmonary Artery using Low Osmolar Contrast (ICD-10-PCS; 2021-09-21)
PROC: 5A0945A Assistance with Respiratory Ventilation, 24-96 Consecutive Hours, High Flow/Velocity Cannula (ICD-10-PCS; 2021-09-23)
PROC: 5A0945A Assistance with Respiratory Ventilation, 24-96 Consecutive Hours, High Flow/Velocity Cannula (ICD-10-PCS; 2021-09-25)
PROC: 5A0935A Assistance with Respiratory Ventilation, Less than 24 Consecutive Hours, High Flow/Velocity Cannula (ICD-10-PCS; 2021-09-27)
PROC: 5A0935A Assistance with Respiratory Ventilation, Less than 24 Consecutive Hours, High Flow/Velocity Cannula (ICD-10-PCS; 2021-09-28)
PROC: 5A0935A Assistance with Respiratory Ventilation, Less than 24 Consecutive Hours, High Flow/Velocity Cannula (ICD-10-PCS; 2021-09-29)
PROC: 5A0935A Assistance with Respiratory Ventilation, Less than 24 Consecutive Hours, High Flow/Velocity Cannula (ICD-10-PCS; 2021-09-30)
PROC: 5A09557 Assistance with Respiratory Ventilation, Greater than 96 Consecutive Hours, Continuous Positive Airway Pressure (ICD-10-PCS; 2021-10-01)
PROC: 5A0935A Assistance with Respiratory Ventilation, Less than 24 Consecutive Hours, High Flow/Velocity Cannula (ICD-10-PCS; 2021-10-01)
PROC: 02HV33Z Insertion of Infusion Device into Superior Vena Cava, Percutaneous Approach (ICD-10-PCS; 2021-10-06)
PROC: B548ZZA Ultrasonography of Superior Vena Cava, Guidance (ICD-10-PCS; 2021-10-06)
PROC: 5A1935Z Respiratory Ventilation, Less than 24 Consecutive Hours (ICD-10-PCS; principal; 2021-10-07)
PROC: 0BH17EZ Insertion of Endotracheal Airway into Trachea, Via Natural or Artificial Opening (ICD-10-PCS; 2021-10-07)
DX: U07.1 COVID-19 (principal); J12.82 Pneumonia due to coronavirus disease 2019; J96.01 Acute respiratory failure with hypoxia; I31.9 Disease of pericardium, unspecified; J93.83 Other pneumothorax; N17.9 Acute kidney failure, unspecified; R57.9 Shock, unspecified; E87.0 Hyperosmolality and hypernatremia; E11.9 Type 2 diabetes mellitus without complications; E66.9 Obesity, unspecified; R00.0 Tachycardia, unspecified; J98.2 Interstitial emphysema; I25.10 Atherosclerotic heart disease of native coronary artery without angina pectoris; I25.2 Old myocardial infarction; Z51.5 Encounter for palliative care; Z68.32 Body mass index [BMI] 32.0-32.9, adult; Z79.899 Other long term (current) drug therapy; Z79.82 Long term (current) use of aspirin; E87.5 Hyperkalemia; T38.0X5A Adverse effect of glucocorticoids and synthetic analogues, initial encounter; Y92.230 Patient room in hospital as the place of occurrence of the external cause; D69.6 Thrombocytopenia, unspecified
CPT/HCPCS: 36415; 36573; 36600; 71045; 71275; 80048; 80053; 81001; 82803; 82948; 83036; 83605; 83615; 83735; 83880; 84100; 84134; 84145; 84478; 84484; 85007; 85008; 85018; 85025; 85379; 85610; 85730; 86140; 87040; 87081; 87088; 93005; 93308; 93970; 94002; 94003; 94640; 94660; 94760; 97110; 97161; 97530; 99285; G0378; J0692; J1100; J1650; J1652; J1815; J1940; J2020; J2250; J2270; J2405; J2920; J2930; J3010; J7030; J7050; J7060; J7614; Q9967